=== PATIENT | male | born 1960 | race Caucasian/White ===

== ENCOUNTER 2016-10-07 16:48 | Inpatient (IN) | payer MEDICARE, MEDICAID ==
[~2016-10-07] VITALS: Ht 182.9 cm; Wt 122.7 kg
[~2016-10-07 16:48] MED LIST: AMLO10TA3 PO; ASPI81TA3 PO; ATOR10TA66 PO; CLOP75TA28 PO; DICL50TA5 PO; FUR20 PO; FURO40TA4 PO; GABA-502 PO; GLIM4TAB2 PO; GLIP10TA10 PO; IPRA0.2S51 IH; IRBE300T18 PO; LISI-567 PO; METO-272 PO; POTA10TA7 PO; TAMS0.4C98 PO; Vancomycin Inj 1,500 MG in 0.9% Sodium Chloride 500 ML IV SCH
[2016-10-07 16:51] VITALS: BP 169/91; PULSE 76; RESP 20; O2SAT 99
--- NOTE | 2016-10-07 18:11 | ED.REPORT ---
HPI-Extremity Problem Lower Date of Service Oct 07, 2016 ED Provider: Christian Enamorado DO This is a 55 year old male with a history of DM, peripheral arterial occlusive disease, morbid obesity, dementia, HTN, degenerative joint disease s/p left above-knee amputation and most recently right above-knee amputation presenting to the emergency department due to pressure ulcer at left buttock that appeared weeks ago. Reports foul smelling discharge, erythema near site, fevers, and chills. Denies nausea or vomiting. Pt seen at [facility] [address] Cervantes. R LE amputation performed by Dr. Andrea at [facility]. Nursing Notes Stated Complaint: WOUND ON LEFT HIP Chief Complaint: General Complaint Nursing Notes Reviewed: Yes Allergies: Coded Allergies: Sulfa (Sulfonamide Antibiotics) (Verified Allergy, Severe, hives, 10/07/16) meperidine (Verified Allergy, Severe, hives, 10/07/16) morphine (Verified Allergy, Severe, stopped breathing, 10/07/16) Scheduled Dicyclomine (Dicyclomine) 20 Mg Tablet 40 MG PO QID Insulin Glargine (Lantus U100 Insulin Vial) 100 Unit/Ml Vial 70 UNITS SUBQ HS Insulin Human Lispro (HumaLOG U100 Insulin Vial) 100 Unit/Ml Unit UNITS SUBQ ACHS sliding scale insulin Lisinopril (Lisinopril) 5 Mg Tablet 5 MG PO BID Methadone (Methadone) 5 Mg Tablet 5 MG PO QID Metoprolol Tartrate (Metoprolol Tartrate) 50 Mg Tablet 50 MG PO TID Sucralfate (Sucralfate) 1 Gm Tablet 1 GM PO QID oxyCODONE (oxyCODONE) 10 Mg Tablet 10 MG PO QID General Time Seen by MD: 18:11 Chief Complaint Hip injury left Hx Obtained From: Patient Arrived By: Walk-in Onset Occurred: Onset unknown Symptom Duration: Since onset Severity: Current: Mild Pertinent Negative: Pt denies other symptoms Recent Healthcare: No recent hospitalization, Recent doctor visit Similar Sx Previous: No Past Medical History Past Medical History 1. Diabetes mellitus. 2. Peripheral arterial occlusive disease. 3. Morbid obesity. 4. Dementia. 5. Posttraumatic stress disorder. 6. Chronic pain syndrome. 7. Migraine. 8. Hypertension. 9. Transient ischemic attacks. 10. Chronic obstructive pulmonary disease. 11. Degenerative joint disease. Past Surgical History Bilateral above-knee amputations Ambulatory Status Independent Review of Systems Constitutional: Reports: Chills, Fever Musculoskeletal: Reports: Extremity pain, Denies: Neck pain Skin: Reports Rash, Reports Swelling Neurologic: Denies: Change LOC, Numbness Complete sys rev & neg: except as marked. Physical Exam Initial Vital Signs Vital Signs (First) Date Time Temp Pulse Resp B/P Pulse Ox O2 Delivery O2 Flow Rate FiO2 10/07/16 16:51 36.9 76 20 169/91 99 Room Air Initial VS: Reviewed ENT: Mucous membranes moist, Conjunctiva normal, No scleral icterus Neck: Supple, Non-tender, Full range of motion Respiratory: Breath sounds normal, Clear to auscultation, No respiratory distress Cardiovascular: Regular rate & rhythm, Heart sounds normal, Intact distal pulses Abdomen / GI: Soft, Non-tender, No guarding, No rebound, No distention Upper Extremities: Vascular intact, Neuro intact, No swelling, No tenderness Skin: Warm, Dry, No cyanosis Neurologic: Alert, Oriented, Nonfocal Psychiatric: Mood/affect normal, Behavior normal, Normal thought content Lower Extremity / Pelvis / MS: Vascular intact Left buttock wound measuring 11.5 x 8.3 x 0.8 cm with black eschar with clear yellow to serous drainage with the appearance of necrosis strongly suggests an infection. Ankle / Foot: Atraumatic, Inspection NL, Full range of motion, No swelling, No erythema, Non-tender, No deformity, Neurologic intact, Vascular intact, No edema General/Constitutional: Awake, Alert Appearance / Presentation: Positive: Obese Head/Eyes not evaluated, pt wearing sunglasses Interpretation & Diagnostics L HIP X-RAY IMPRESSION: 1. Suspect left femoral neck fracture. 2. Subcutaneous gas in the left buttock. Dictated by: Juvencio Lopez M.D. on 10/07/2016 at 20:54 Approved by: Juvencio Lopez M.D. on 10/07/2016 at 20:56 Lab Results Interpretation Result Diagram: 10/08/16 0643 10/08/16 0643 Test 10/07/16 19:13 Hemoglobin A1c 7.7% (4.8-5.6) Lactic Acid Level 1.1mmol/L (0.4-2.0) Re-Eval/Medical Decision Med Decision/Clinical Course Infected buttock ulcer with possible femoral neck fracture versus osteomyelitis. This gentleman needs hospitalization, surgical debridement and possible orthopedic consultation. I have initiated antibiotics with IV Zosyn. Dr. Stephen the general surgeon on-call as been informed. She is currently in the operating room. Our hospitalist will admit Mr. Sandoval to the hospital for further treatment evaluation and specialist consultation. Consultation #1: Referral / Consult Name: Felicita Stephen MD Consulted With: Surgeon Call Returned at: 19:42 Employment Agency Manager: Agrees with eval, Agrees with plan Consultation #2: Referral / Consult Name: Nilson Olmedo MD Consulted With: Hospitalist Call Returned at: 19:58 Employment Agency Manager: Accepts admit Counseled Regarding: Diagnosis, Lab results, Need for follow-up, Need for admission Discharge & Departure Impression: Primary Impression: Skin ulcer of hip with necrosis of muscle Disposition: ADMITTED TO HOSPITAL Discharge Condition All VS Reviewed: Yes Condition: Stable Referrals: Steven Cosme MD (PCP) Scribe Attestation Portions of this note were transcribed by Carmen Morales. I, Dr. Enamorado personally performed the history, physical exam and medical decision-making; I reviewed and confirmed the accuracy of the information in the transcribed note. Signed by: Carmen Morales. 10/07/2016, 03:00. Christian Enamorado DO Oct 07, 2016 18:11 CARMEN MORALES Oct 07, 2016 18:25 Potassium Level 3.8mEq/L (3.5-5.2) Chloride Level 95mEq/L (97-108) Carbon Dioxide Level 29mmol/L (18-29) Blood Urea Nitrogen 15mg/dL (6-24) Creatinine 0.92mg/dL (0.76-1.27) Estimat Glomerular Filtration Rate 91mL/min (>59) Glucose Level 105mg/dL (60-99) Lactic Acid Level 1.1mmol/L (0.4-2.0) Calcium Level 8.0mg/dL (8.5-10.1) Total Bilirubin < 0.2mg/dL (0.0-1.2) Aspartate Amino Transf (AST/SGOT) 9U/L (0-50) Alanine Aminotransferase (ALT/SGPT) 9U/L (0-44) Alkaline Phosphatase 124U/L (25-150) Total Protein 7.1g/dL (6.4-8.4) Albumin 2.1g/dL (3.4-5.0) Procalcitonin 0.17ng/mL (0.00-0.08) Re-Eval/Medical Decision Consultation #1: Referral / Consult Name: Felicita Stephen MD Consulted With: Surgeon Call Returned at: 19:42 Employment Agency Manager: Agrees with eval, Agrees with plan Consultation #2: Referral / Consult Name: Nilson Olmedo MD Consulted With: Hospitalist Call Returned at: 19:58 Employment Agency Manager: Accepts admit Counseled Regarding: Diagnosis, Lab results, Need for follow-up, Need for admission Discharge & Departure Impression: Primary Impression: Skin ulcer of hip with necrosis of muscle Disposition: ADMITTED TO HOSPITAL Discharge Condition All VS Reviewed: Yes Condition: Stable Referrals: Steven Cosme MD (PCP) Scribe Attestation Portions of this note were transcribed by Carmen Morales. I, Dr. Enamorado personally performed the history, physical exam and medical decision-making; I reviewed and confirmed the accuracy of the information in the transcribed note. Signed by: Carmen Morales. 10/07/2016, 03:00. Christian Enamorado DO Oct 07, 2016 18:11 CARMEN MORALES Oct 07, 2016 18:25
[2016-10-07] MEDS ORDERED: Ondansetron 2 mg/mL 2 mL Inj IVPUSH PRN ×2 (18:25→21:10)
[2016-10-07 19:28] LABS: BASOPHILS % (AUTO) 0.1 % (0-3); EOSINOPHILS % (AUTO) 3.2 % (0-5)
[2016-10-07] MEDS: HYDROmorphone 0.5 mg/0.5 mL iSecure Syringe IVPUSH PRN ×3 (19:31→21:47)
[2016-10-07 19:34] LABS: MONOCYTES % (AUTO) 9.6 % (4-12); Mean Corpuscular Hemoglobin 24.7 pg (27.0-35.0); Mean Corpuscular Volume 82.3 fL (81-100); NEUTROPHILS % (AUTO) 70.8 % (40-74); Platelet Count 359 bil/L (150-400)
[2016-10-07] MEDS ORDERED: Polyethylene Glycol (PEG) 17 Gm Powder PO PRN ×2 (20:10→21:10)
[2016-10-07] MEDS ORDERED: OXYC10TA8 PO (20:14)
[2016-10-07] MEDS ORDERED: DICY20TA10 PO (20:14)
[2016-10-07] MEDS ORDERED: SUCR1TAB PO (20:14)
[2016-10-07] MEDS ORDERED: METH5TAB3 PO (20:14)
[2016-10-07] MEDS ORDERED: INSU100V7 SUBQ (20:15)
[2016-10-07] MEDS ORDERED: METO50TA3 PO (20:15)
[2016-10-07] MEDS ORDERED: INSLIS SUBQ (20:15)
[2016-10-07] MEDS ORDERED: LISI-571 PO (20:15)
--- NOTE | 2016-10-07 20:57 | DRSVH ---
PROCEDURE: X-RAY LEFT HIP COMPLETE, MINIMUM TWO VIEWS ([id number]) INDICATIONS: left hip/buttock wound TECHNIQUE: 2 views of the hip were acquired. COMPARISON: None. FINDINGS: Bones: Bones are osteopenic. Suspect fracture in the left femoral neck. There is severe osteopenia.. No suspicious bony lesions. The visualized pelvic ring appears intact. Soft tissues: No suspicious soft tissue calcifications or masses. Subcutaneous gas in the left butt ock. IMPRESSION: 1. Suspect left femoral neck fracture. 2. Subcutaneous gas in the left buttock. Dictated by: Juvencio Lopez M.D. on 10/07/2016 at 20:54 Approved by: Juvencio Lopez M.D. on 10/07/2016 at 20:56
[2016-10-07] MEDS ORDERED: Alum-Mag Hydrox-Simeth 30 mL Suspension PO PRN (21:10)
[2016-10-07] MEDS ORDERED: HYDROmorphone 0.5 mg/0.5 mL iSecure Syringe IVPUSH PRN (21:10)
[2016-10-07] MEDS ORDERED: Vancomycin Dose per Pharmacist XX SCH (21:10)
[2016-10-07] MEDS ORDERED: Glucose 40% Oral Gel 15 Gm Tube PO PRN ×2 (21:10→21:35)
[2016-10-07] MEDS: Vancomycin Dose per Pharmacist XX SCH (21:30)
[2016-10-07 21:48] VITALS: BP 135/68; RESP 16; O2SAT 95
[2016-10-07] MEDS ORDERED: Vancomycin Inj 2,250 MG in 0.9% Sodium Chloride 500 ML IV ONE (22:00)
[2016-10-07] MEDS: Insulin LISPRO 300 Unit/3 mL Inj SUBQ SCH (22:00)
[2016-10-07] MEDS ORDERED: Insulin LISPRO 300 Unit/3 mL Inj SUBQ SCH (22:00)
[2016-10-07 22:11] VITALS: BP 136/71; PULSE 85; RESP 20; O2SAT 93
--- NOTE | 2016-10-07 22:42 | PCM.CONPHA ---
Subjective Date of Service: Oct 07, 2016 Reason for Pharmacy Consult: Vancomycin Dosing Objective Vital Signs Date Time Temp Pulse Resp B/P Pulse Ox O2 Delivery O2 Flow Rate FiO2 10/07/16 22:11 36.7 20 136/71 93 Room Air 10/07/16 21:48 37.1 16 135/68 95 Room Air 10/07/16 16:51 36.9 76 20 169/91 99 Room Air Weight (Kilograms): 122.740 Height (Feet): 6 Height (Inches): 0.00 Test 10/07/16 19:13 White Blood Count 16.4th/mm3 (3.8-10.1) Red Blood Count 3.89mil/mm3 (4.40-5.80) Hemoglobin 9.6g/dL (13.8-17.2) Hematocrit 32.0% (41.0-50.0) Mean Corpuscular Volume 82.3fL (81-100) Mean Corpuscular Hemoglobin 24.7pg (27.0-35.0) Mean Corpuscular Hemoglobin Concent 30.0% (32.0-37.0) Red Cell Distribution Width 14.6% (12.3-15.4) Platelet Count 359bil/L (150-400) Neutrophils (%) (Auto) 70.8% (40-74) Lymphocytes (%) (Auto) 15.7% (14-46) Monocytes (%) (Auto) 9.6% (4-12) Eosinophils (%) (Auto) 3.2% (0-5) Basophils (%) (Auto) 0.1% (0-3) Sodium Level 135mEq/L (134-144) Potassium Level 3.8mEq/L (3.5-5.2) Chloride Level 95mEq/L (97-108) Carbon Dioxide Level 29mmol/L (18-29) Blood Urea Nitrogen 15mg/dL (6-24) Creatinine 0.92mg/dL (0.76-1.27) Estimat Glomerular Filtration Rate 91mL/min (>59) Glucose Level 105mg/dL (60-99) Lactic Acid Level 1.1mmol/L (0.4-2.0) Calcium Level 8.0mg/dL (8.5-10.1) Total Bilirubin < 0.2mg/dL (0.0-1.2) Aspartate Amino Transf (AST/SGOT) 9U/L (0-50) Alanine Aminotransferase (ALT/SGPT) 9U/L (0-44) Alkaline Phosphatase 124U/L (25-150) Total Protein 7.1g/dL (6.4-8.4) Albumin 2.1g/dL (3.4-5.0) Procalcitonin 0.17ng/mL (0.00-0.08) Assessment/Plan Assessment/Plan Vanco per Rx Indication: Hip Ulcer/Necrosis Trough Goal : 10 - 15 LD 2250mg then 1500mg q12h; 1st trough before 4th dose @ 0930 Estimated trough @ SS : 12 Rigo Alejandro PharmD Oct 07, 2016 22:41
--- NOTE | 2016-10-07 23:10 | PCM.HPMED ---
Subjective Date of Service Oct 07, 2016 Primary Provider: Admitting Physician: Felicita Stephen MD Primary Care Physician: Steven Cosme MD Attending Physician: Felicita Stephen MD Admit Status: From the Emergency Department Chief Complaint: Left hip wound History of Present Illness: 55-year-old obese patient with history of smoking, PAD, insulin-dependent diabetes mellitus, diabetic retinopathy presented to the ER due to his left hip ulcer. Patient is present with his and caregiver. They report that patient was discharged from [facility] following right above-the- knee amputation in July, when they first noticed left hip ulcer. The patient's reports that she applied gentamicin to the ulcer but noted that it did not help and the ulcer continued to grow.Family notes that the ulcer has been getting deeper and more painful for the patient. Family reports that there is a significant amount of purulent drainage with significant odor and some blood. Patient reports that he has been experiencing fever, chills, nausea, vomiting, diarrhea. Patient denies any new myalgias, but reports chronic allover pain. Family reports that the patient was seen at the wound care center and then was evaluated by a surgeon who had recommended surgery last week. Patient states that he was unable to have the surgery last week, as he wanted to keep his eye appointment, which resulted in a diagnosis of diabetic retinopathy. Patient and his family reports that they presented to the ER today because of increasing purulent discharge and a desire for surgical evaluation as had been previously recommended. Patient states that while he has a diabetic he refuses to eat a diabetic diet, and states that he will leave AMA if a diabetic diet as ordered for him. In the ER patient noted temperature 36.9, pulse of 76, respiratory rate of 20, blood pressure 169/91, pulse ox 99 on room air. Review of Systems: A comprehensive review of systems was conducted with the patient and found to be negative except as above in the History of Present Illness. Allergies Coded Allergies: Sulfa (Sulfonamide Antibiotics) (Verified Allergy, Severe, hives, 10/07/16) meperidine (Verified Allergy, Severe, hives, 10/07/16) morphine (Verified Allergy, Severe, stopped breathing, 10/07/16) Home Medications Amlodipine Aspirin 81 mg Atorvastatin Plavix Diclofenac Furosemide Gabapentin Glimepiride Glipizide Ipratropium Irbesartan Lisinopril Metoprolol Potassium chloride Tamsulosin Methadone Oxycodone Insulin PMH Diabetes mellitus type II insulin-dependent Peripheral artery occlusive disease Morbid obesity Dementia Posttraumatic stress disorder Chronic pain syndrome Migraine Hypertension TIA COPD Degenerative joint disease Surgical History Bilateral [id number] amputations Social History Hx Alcohol Use: Yes ("quit") Hx Substance Use: No Hx Tobacco Use: Yes Smoking Status: Current Every Day Smoker Living Arrangement: with Family Exam Vital Signs Vital Sign - Last Date Time Temp Pulse Resp B/P Pulse Ox O2 Delivery O2 Flow Rate FiO2 10/07/16 22:11 36.7 20 136/71 93 Room Air 10/07/16 16:51 76 Exam General: Obese, appears older than stated age. Chronically ill appearing. HEENT: Edentulous .Normocephalic, atraumatic. External ears without defect. Pupils equal, round, and reactive to light and accommodation. Moist conjunctivae. Oropharynx with moist mucosa. Neck: Supple with full range of motion.No lymphadenopathy Cardiovascular: Regular rate and rhythm with no murmurs, rubs, or gallops appreciated Pulmonary: Clear to auscultation bilaterally with no crackles, wheezes, or rhonchi. Normal respiratory effort with no use of accessory muscles. Abdomen: Large pannus. Bowel tones present. Soft, nontender, nondistended. Extremities: Left hip with significant eschar and malodorous purulent drainage. Unable to visualize sacral wound due to patient's habitus. Bilateral above-the -knee amputation. Right amputation stump with 1-2 cm circular wound. Skin: Normal temperature, turgor, and texture; no rash, ulcers, or subcutaneous nodules appreciated. Psychiatric: Normal mood and affect. Alert and oriented to person, place, and time. Lab and Diagnostics Result Diagram: 10/07/16191210/07/161912 X-Rays, CTs and MRIs PROCEDURE: X-RAY LEFT HIP COMPLETE, MINIMUM TWO VIEWS ([id number]) INDICATIONS: left hip/buttock wound TECHNIQUE: 2 views of the hip were acquired. COMPARISON: None. FINDINGS: Bones: Bones are osteopenic. Suspect fracture in the left femoral neck. There is severe osteopenia.. No suspicious bony lesions. The visualized pelvic ring appears intact. Soft tissues: No suspicious soft tissue calcifications or masses. Subcutaneous gas in the left buttock. IMPRESSION: 1. Suspect left femoral neck fracture. 2. Subcutaneous gas in the left buttock. Dictated by: Juvencio Lopez M.D. on 10/07/2016 at 20:54 Approved by: Juvencio Lopez M.D. on 10/07/2016 at 20:56 Assessment & Plan 55-year-old obese patient with history of smoking, PAD, insulin-dependent diabetes mellitus, diabetic retinopathy presented due to his left hip ulcer. Infected unstageable left hip pressure ulcer, present on admission, ongoing -In ER, xray of hip demonstrated left femoral neck fracture and subcutaneous gas in left buttock -Pt received dose of Zosyn in ER. -Leukocytosis 16.4,neutrophils 70.8 -Lactic acid 1.1, no need to trend -Procalcitonin 0.17 -Blood cultures pending -Treating pt with Vancomycin and Zosyn -Dilaudid available for pain -Per ER physician, surgery has been consulted and will likely perform surgery in AM -Pt NPO after midnight for AM surgery Insulin-dependent diabetes mellitus type 2 with complication of diabetic retinopathy, present on admission, ongoing -Holding home medications -Low dose correctional insulin protocol initiated -Would recommend diabetic diet, however pt states he would leave AMA if given diabetic diet -General diet ordered for patient -A1C ordered Morbid obesity -BMI of 36.7 Tobacco use disorder, present on admission, ongoing -Nicotine patch ordered for patient -Encouraged cessation, pt not interested. Chronic issues Peripheral artery disease Chronic pain COPD PCP: Dr Cosme CODE STATUS: Full code Pain Evaluation: Adequate Pain Control VTE Prophylaxis: Sub-Q Heparin (Unfractionated) Resuscitation Status: CPR: Attempt Resuscitation Attending Statement The patient was seen and examined together with Dr. Brown on 10/07 and I agree with the history, exam and plan as outlined in the note above. copies to: Steven Cosme MD, Tara L DO Oct 07, 2016 22:38 Nilson Olmedo MD Oct 08, 2016 00:36
[2016-10-08] VITALS (11 sets, daily range): BP systolic 123–163; BP diastolic 64–87; PULSE 74–92; RESP 12–18; O2SAT 94–100
[2016-10-08] MEDS: 0.9% Sodium Chloride 1,000 ML IV SCH ×3 (00:21→17:06)
[2016-10-08] MEDS ORDERED: Piperacillin-Tazo 3.375 Gm Inj 3.375 GM in Dextrose 5% Minibag Plus 50 ML IV SCH (00:30)
[2016-10-08] MEDS: HYDROmorphone 0.5 mg/0.5 mL iSecure Syringe IVPUSH PRN ×3 (01:29→16:10)
[2016-10-08] MEDS: Heparin 5,000 Unit/mL Inj SUBQ SCH ×3 (01:34→16:18)
[2016-10-08] MEDS: Piperacillin-Tazo 3.375 Gm Inj 3.375 GM in Dextrose 5% Minibag Plus 50 ML IV SCH ×4 (03:32→16:09)
[2016-10-08 06:54] LABS: BASOPHILS % (AUTO) 0.1 % (0-3); EOSINOPHILS % (AUTO) 3.5 % (0-5); MONOCYTES % (AUTO) 9.3 % (4-12); Mean Corpuscular Hemoglobin 24.6 pg (27.0-35.0); NEUTROPHILS % (AUTO) 65.1 % (40-74); Platelet Count 331 bil/L (150-400)
--- NOTE | 2016-10-08 07:53 | NUR ---
admit pt arrived to [facility] at 2210. He was moved to a p500 bed via sliding board. he is alert and oriented x3, but forgetful. he moves all extremities but requires a sling and lift for some bed movements and transfers as he has bilateral AKA's. pt had a soiled dressing on his Left buttock. when pt arrived he refused to roll to his other side to allow nurse to change his dressing or to check his buttocks for other skin breakdown. he also refused to eat a diabetic diet despite teaching. MD note noted this and said a general diet had been ordered. This AM pt did allow nurse and [employer]'s to turn him and look at his buttocks. a second ulcer was found on his sacrum at that time. this was passed on to Dr. Fontanez when he rounded this AM. clean ABD pads were placed on the wounds. pt incontinent of urine and feces. frequent linen changes and skin checks needed. care continues.
--- NOTE | 2016-10-08 07:53 | PCM.PNSURG ---
Subjective Visit Information: Reason for Visit Infected Pressure Ulcer Surgery/Surgery Date Post-Op Day # Date of Admission: Oct 07, 2016 at 19:27 Hospital Day # Subjective: pt [facility] and 10/01, known to Dr. Cervantes, has large black ulcer on L buttock and a shallow sacral decub ulcer. Objective Objective Lying in bed L buttock -- tennis ball size black necrotic ulcer Shallow sacral decub ulcer, stage 3 Vital Sign- Last 8 Hours Date Time Temp Pulse Resp B/P Pulse Ox O2 Delivery O2 Flow Rate FiO2 10/08/16 06:09 37.2 80 18 158/83 94 Room Air 10/08/16 02:16 36.9 74 18 123/68 94 Room Air Intake and Output- Last 8 Hour 10/08/16 Cumulative From/Thru 07:00 10/07/16 16:51 - 10/08/16 06:44 Intake Total 600 ml 600 ml Balance 600 ml 600 ml Intake Oral 600 ml 600 ml # Voids 2 2 Result Diagram: 10/08/16 0643 10/07/16 1913 Assessment & Plan Impression L buttock and sacral decub ulcer DM s/p bilat leg amputation Problems: Plan To OR for debridement Consider ortho consult for the hip VTE Prophylaxis: Sub-Q Heparin (Unfractionated) Resuscitation Status: CPR: Attempt Resuscitation King Fontanez MD Oct 08, 2016 07:53
[2016-10-08] MEDS: Insulin LISPRO 300 Unit/3 mL Inj SUBQ SCH ×4 (08:11→21:28)
[2016-10-08] MEDS: Vancomycin Dose per Pharmacist XX SCH (08:15)
[2016-10-08] MEDS ORDERED: Vancomycin Inj 1,500 MG in 0.9% Sodium Chloride 500 ML IV SCH (10:00)
--- NOTE | 2016-10-08 10:26 | NUR ---
IV meds Zosyn off schedule at start of shift; also discovered IV not patent when Vanco due. Unable to restart, phoned IV therapy for assistance. Waiting for restart from IV therapy. Also phoned pharmacy about re-timing Zosyn.
--- NOTE | 2016-10-08 11:17 | PCM.PHAPRO ---
Progress Left hip wound Pharmacy Kinetic Dosing Vancomycin Indication: Necrotizing pressure ulcer Vanc goal trough: 15-20 mcg/mL (given co-morbidities and hospitalization in 2015) Pt wt: 122.7 kg Other ABX: Zosyn SCr: 0.93 WBC: 14.6 Cultures: Blood: pending *NOTE: pt undergoing debridement of affected area 10/09* Assessment/Plan: - Loading dose of vancomycin 2,250 mg given in ED. -Will increase scheduled vancomycin to 2000 mg Q12H to obtain ~ 16 mg/kg based on severity of infection. -Will schedule trough level for on 10/09/16 @2230. Pharmacy appreciates consult and will continue to monitor. Thanks, Nakul Lombardo, PharmD Nakul Lombardo F Oct 08, 2016 11:17
--- NOTE | 2016-10-08 11:39 | NUR ---
Transfer To OR via bed at 11:25. No IV access, pre-op RN and IV therapy aware. Angela sent with pt. Signed consent in chart. Report given to pre-op RN.
--- NOTE | 2016-10-08 11:45 | PCM.HPANE ---
Patient Data Surgeon Admitting Provider:Felicita Stephen MD Attending Provider:Felicita Stephen MD Primary Care Physician:Steven Cosme MD Other Provider: Reason for Visit Infected Pressure Ulcer Ht/WT & BMI Height (Feet): 6 Height (Inches): 0.00 Weight (Kilograms): 122.740 Body Mass Index 36.65 Allergies Coded Allergies: Sulfa (Sulfonamide Antibiotics) (Verified Allergy, Severe, hives, 10/07/16) meperidine (Verified Allergy, Severe, hives, 10/07/16) morphine (Verified Allergy, Severe, stopped breathing, 10/07/16) Past Anesthesia History Anesthesia History: Denies:: Anesthesia Reactions Diabetes History Hx Diabetes?: Yes (IDDM) Current Bedside Blood Glucose: 195 MRSA MRSA: No Medications Reported Medications Insulin Human Lispro (HumaLOG U100 Insulin Vial)100 Unit/Ml Unit Units SUBQ ACHS sliding scale insulin 10/07/16 Insulin Glargine (Lantus U100 Insulin Vial)100 Unit/Ml Vial70 Units SUBQ HS 10/07/16 Metoprolol Tartrate 50 Mg [id number] Mg PO TID 10/07/16 Lisinopril 5 Mg Tablet5 Mg PO BID 10/07/16 Sucralfate 1 Gm Tablet1 Gm PO QID 10/07/16 Dicyclomine 20 Mg [id number] Mg PO QID 10/07/16 oxyCODONE 10 Mg [id number] Mg PO QID 10/07/16 Methadone 5 Mg Tablet5 Mg PO QID 10/07/16 Last Time Dose Received Hospital meds reviewed History History of ENT Problems?: No Hx of Heart Problems?: Yes Cardiovascular History: Positive for:: Hypertension Other History/Comments Pt. reports hx ID; unclear; no recent CP Hx of Respiratory Problem?: Yes Respiratory History: Positive for:: COPD Dyspnea Other History/Comment breathing is at baseline Hx Neurologic Problems?: Yes Neurological History: Positive for:: CVA (tia's) Dementia Headaches (migraines) Other Neurological Pertinent: PAD Other History/Comments CVA - 2007; TIA"s Hx of GI Problems?: No Hx of Problems?: No Male Hx: Positive for:: Prostate Problems Hx Musculoskeletal Problems?: Yes Musculoskeletal History: Positive for:: Back Injury (chronic pain sme, DJD) Hx of Psycho/Social Problems?: Yes Psycho Social History: Positive for:: Anxiety (PTSD) Hx Surgeries?: Yes (bilateral AKA's) Hx Any Other Health Problems?: Yes Other History: Positive for:: Hospitalization Denies:: Cancer Thyroid Disease History Blood Transfusions: Positive for:: Accept Blood Products? Hx Diabetes: Yes (IDDM)Bedside Blood Glucose: 195 Hx Alcohol Use: Yes ("quit")Hx Substance Use: No Smoking Status: Current Every Day Smoker Have You Smoked inLast 12 mo: Yes Stop/Bang Treated for Sleep Apnea?: No Do You Have a CPAP Machine?: No S-Snoring: Do You Snore Loudly: Yes T-Tired: feel tired, fatigued: Yes O-Obsered: Observed not breath: No P-Blood Pressure: treated: Yes B- Body Mass Index > 35 kg/m2: No A- Age over 50: Yes N- Neck Large Circumference: Yes G- Gender Male: Yes CARLOS Total Score: 5 Risk Assessment Category Category 1A: Patient has history of documented sleep apnea, and HAS NOT received any narcotic, sedative or anesthesia administration during this stay. Category 1B: Patient has history of documented sleep apnea, and HAS received any narcotic , sedative or anesthesia administration during this stay Category 2: Patient has SUSPECTED Obstructive Sleep Apnea, and HAS received any narcotic , sedative or anesthesia administration during this stay. Category 3: Patient has SUSPECTED Obstructive Sleep Apnea and HAS NOT received narcotic, sedative or anesthesia administration during this stay. Category 4: Outpatient in Procedural Areas with known sleep apnea or who screen positive for High Risk via the STOP/BANG questionnaire. Exam Exam Vital Signs Vital Signs Date Time Temp Pulse Resp B/P Pulse Ox O2 Delivery O2 Flow Rate FiO2 10/08/16 06:09 37.2 80 18 158/83 94 Room Air General Appearance: Alert, Oriented X3 HEENT/AIRWAY: MP 2, MP 3, Neck Movement (FROM), Other (No teeth) Lungs: Clear to Auscultation, Clear to Percussion Heart: Exam Unremarkable, Regular Rate/Rhythm Meds/Labs/Diagnostics Admission Meds Current Medications Heparin Sodium (Porcine) 5000 unit 5,000 unit Q8 SUBQ Last administered on 10/08 01:34; Start 10/08/16 at 00:30 Sodium Chloride (Normal Saline) 1,000 ml @ 100 mls/hr Q10H IV Last administered on 10/08/16 00:21; Start 10/07/16 at 21:06 Nicotine 1 patch 1 patch HS TOPICAL Last administered on 10/07/16 23:10; Start 10/07/16 at 23:00 Vancomycin HCl/ Sodium Chloride (Vancocin Inj/ Normal Saline) 500 ml @ 200 mls/ hr ONCE ONCE IV Last administered on 10/08/16 00:20; Start 10/07/16 at 22:00 ; Stop 10/08/16 at 00:29; Status DC Insulin Human Lispro Nutritional Dose to be given pr... [facility] SUBQ Last administered on 10/08/16 08:11; Start 10/07/16 at 22:00 Piperacillin Sod/ Tazobactam Sod/ Dextrose/Water (Zosyn 3.375 Gm Inj/D5W Minibag Plus) 50 ml @ 12.5 mls/hr Q8 IV Last administered on 10/08/16 03:32; Start 10/08/16 at 00:30 Bedside Blood Glucose: 195 Labs Test 10/07/16 19:13 10/08/16 06:43 Hemoglobin A1c 7.7% (4.8-5.6) Lactic Acid Level 1.1mmol/L (0.4-2.0) White Blood Count 14.0th/mm3 (3.8-10.1) Red Blood Count 3.41mil/mm3 (4.40-5.80) Hemoglobin 8.4g/dL (13.8-17.2) Hematocrit 28.3% (41.0-50.0) Mean Corpuscular Volume 83.0fL (81-100) Mean Corpuscular Hemoglobin 24.6pg (27.0-35.0) Mean Corpuscular Hemoglobin Concent 29.7% (32.0-37.0) Red Cell Distribution Width 14.4% (12.3-15.4) Platelet Count 331bil/L (150-400) Neutrophils (%) (Auto) 65.1% (40-74) Lymphocytes (%) (Auto) 21.5% (14-46) Monocytes (%) (Auto) 9.3% (4-12) Eosinophils (%) (Auto) 3.5% (0-5) Basophils (%) (Auto) 0.1% (0-3) Sodium Level 137mEq/L (134-144) Potassium Level 4.2mEq/L (3.5-5.2) Chloride Level 99mEq/L (97-108) Carbon Dioxide Level 27mmol/L (18-29) Blood Urea Nitrogen 15mg/dL (6-24) Creatinine 0.93mg/dL (0.76-1.27) Estimat Glomerular Filtration Rate 90mL/min (>59) Glucose Level 146mg/dL (60-99) Calcium Level 7.4mg/dL (8.5-10.1) Total Bilirubin 0.2mg/dL (0.0-1.2) Aspartate Amino Transf (AST/SGOT) 10U/L (0-50) Alanine Aminotransferase (ALT/SGPT) 8U/L (0-44) Alkaline Phosphatase 129U/L (25-150) Total Protein 5.6g/dL (6.4-8.4) Albumin 1.8g/dL (3.4-5.0) Procalcitonin 0.17ng/mL (0.00-0.08) Plan Impression Patient chart reviewed, patient interviewed and anesthestic plan with risks, benefits, and alternatives discussed, and informed consent obtained. ASA Physical Status: ASA3 Plus Emergency Anesthetic Plan: GA Bene/Risks/Altern/Consents: Yes HP Complete Prior to Induction: Yes Adrian Viera MD Oct 08, 2016 11:45
[2016-10-08] MEDS ORDERED: fentaNYL-PF 50 mCg/mL 2 mL Inj ONE (11:56)
[2016-10-08] MEDS ORDERED: Propofol 10,000 mCg/mL 20 mL Inj ONE (11:56)
[2016-10-08] MEDS ORDERED: Succinylcholine Chloride 20 mg/mL 5 mL Inj ONE (11:56)
[2016-10-08] MEDS ORDERED: EPHEDrine/NS 5 mg/mL 5 mL Syringe ONE (11:56)
[2016-10-08] MEDS ORDERED: fentaNYL-PF 50 mCg/mL 2 mL Inj IVPUSH PRN (12:25)
[2016-10-08] MEDS ORDERED: Atropine 0.4 mg/mL Inj IVPUSH PRN (12:25)
[2016-10-08] MEDS ORDERED: MetoCLOpramide 5 mg/mL 2 mL Inj IVPUSH PRN (12:25)
[2016-10-08] MEDS ORDERED: Lactated Ringer's 1,000 ML IV SCH (12:25)
[2016-10-08] MEDS ORDERED: Phenylephrine 10,000 mCg/mL Inj IVPUSH PRN (12:25)
[2016-10-08] MEDS ORDERED: Lactated Ringer's 500 ML IV PRN (12:25)
[2016-10-08] MEDS ORDERED: EPHEDrine Sulfate 50 mg/mL Inj IVPUSH PRN (12:25)
[2016-10-08] MEDS ORDERED: Ondansetron 2 mg/mL 2 mL Inj IVPUSH PRN (12:25)
[2016-10-08] MEDS: Vancomycin Inj 2,000 MG in 0.9% Sodium Chloride 500 ML IV SCH ×3 (12:48→23:18)
[2016-10-08] MEDS ORDERED: Lactated Ringer's 1,000 ML IV ONE (12:55)
[2016-10-08] MEDS ORDERED: Bupivacaine-MPF 0.5% W/EPI 30 mL Inj INFILTRATE ONE (12:57)
--- NOTE | 2016-10-08 14:33 | PCM.ANEP1 ---
Post Anesthesia Phase 1 PACU Phase 1 Assessment Date of Service: Oct 07, 2016 Anesthetic Administered: GA Level of Alertness: Awake, talking NOGUEIRA's with Equal Strength: Yes Pain: No Pain Scale Score: 10 Nausea or Vomiting: No Oxygen Delivery: Simple Mask Lungs: Clear to Auscultation, Clear to Percussion Summary See anesth record for PACU VS. PACU VSS Adrian Viera MD Oct 08, 2016 14:33
--- NOTE | 2016-10-08 14:34 | PCM.ANEP2 ---
Post Anesthesia Evaluation ASA/CMS Post Anesthesia VS in Patient's Normal Range?: Yes Resp Stable; Airway Patent?: Yes CV Function & Hydration Stable: Yes Mental Status Recovered?: Yes Pain control Satisfactory?: Yes N/V Control Satisfactory?: Yes Adrian Viera MD Oct 08, 2016 14:34
[2016-10-08] MEDS: HYDROmorphone 1 mg/mL Inj IVPUSH PRN ×2 (14:47→15:03)
--- NOTE | 2016-10-08 15:10 | OP ---
[address] [address] OPERATIVE REPORT PATIENT: TONIO SHABAZZ : 1960 MR#: [id number] ADMIT: 10/07/2016 JOB ID: [id number] DATE OF SURGERY: 10/08/2016 SURGEON: King Fontanez MD RESOURCE DEVELOPMENT DIRECTOR: None. ANESTHESIA: General. PREOPERATIVE DIAGNOSIS(ES): Decubitus ulcer x2. POSTOPERATIVE DIAGNOSIS(ES): Decubitus ulcer x2. PRINCIPAL PROCEDURE: Excisional debridement of left hip decubitus ulcer and also a sacral decubitus ulcer. INDICATION FOR PROCEDURE: The patient is a 55-year-old male with peripheral vascular disease and prior leg amputations x2 who now has a decubitus ulcer x2, one at the left hip, and one at the sacral region. PRINCIPAL FINDING: Successful excisional debridement of the larger left hip decubitus ulcer by the end of procedure. The dimensions measured 11 x 11 x 5 cm. The smaller perineal/sacral decubitus ulcer was smaller and measured 3 x 3 x 4 cm in dimension. PROCEDURE COURSE: The patient was brought to the operating table and was provided with general anesthesia. The patient was placed in a right lateral decubitus position exposing his left hip, and also his peroneal/sacral region. A time-out was performed. The patient had already been receiving IV antibiotics. A local anesthetic was injected into the surrounding tissue and we started with excisional debridement of the large left hip decubitus ulcer sharply using a scalpel. The entire necrotic skin and subcu and underlying muscle was all sharply debrided all the way down to the femoral neck. We were directly onto the femoral bone itself. All obvious necrotic and non bleeding tissue were excised. Hemostasis was controlled using cautery. Using a finger, we bluntly probed in all directions to make sure we unroof any abscess cavity. Copious irrigation was also performed. By the end of the excisional debridement, the cavity measured 11 x 11 x 5 cm. It was then packed with Kerlix soaked in half-strength Betadine. Next, we turned our attention to the peroneal/sacral decubitus. Again the skin and necrotic subcu and fat were all excised sharply using the scalpel. Hemostasis was controlled using cautery. By the end of the excisional debridement, the cavity measured 3 x 3 x 4 cm. Wound care, Morris Garduno, was present at the end of procedure to visualize the wounds. The second smaller cavity was also packed with Kerlix gauze soaked in half strength Betadine. By the end of the procedure, needle counts and sponge counts were correct. The patient was then extubated and taken to the recovery room in stable satisfactory condition.
--- NOTE | 2016-10-08 15:44 | NUR ---
Post op Returned to [facility] via bed at 15:35. Report received from Jamilah. Awake and oriented. Denies nausea, complains of hip/incisional pain /. Sats mid 90s on 2L nc, DESIGN ASSEMBLER for apnea risk and narcotics. Dressings intact with Betadine seepage. Vanco infusing. Clinitron bed ordered per professional sports scoutMorris.
--- NOTE | 2016-10-08 16:25 | PCM.CONORT ---
Subjective Surgeon Admitting Provider:Felicita Stephen MD Attending Provider:Felicita Stephen MD Primary Care Physician:Steven Cosme MD Other Provider: Reason for Consultation: Left femoral head fracture, decubitus/hip ulcer Allergy Allergies: Coded Allergies: Sulfa (Sulfonamide Antibiotics) (Verified Allergy, Severe, hives, 10/07/16) meperidine (Verified Allergy, Severe, hives, 10/07/16) morphine (Verified Allergy, Severe, stopped breathing, 10/07/16) Medications Dicyclomine (Dicyclomine) 20 Mg Tablet 40 MG PO QID (Reported) Insulin Glargine (Lantus U100 Insulin Vial) 100 Unit/Ml Vial 70 UNITS SUBQ HS ( Reported) Insulin Human Lispro (HumaLOG U100 Insulin Vial) 100 Unit/Ml Unit UNITS SUBQ ACHS (Reported) sliding scale insulin Lisinopril (Lisinopril) 5 Mg Tablet 5 MG PO BID (Reported) Methadone (Methadone) 5 Mg Tablet 5 MG PO QID (Reported) Metoprolol Tartrate (Metoprolol Tartrate) 50 Mg Tablet 50 MG PO TID (Reported) Sucralfate (Sucralfate) 1 Gm Tablet 1 GM PO QID (Reported) oxyCODONE (oxyCODONE) 10 Mg Tablet 10 MG PO QID (Reported) History History of ENT Problems?: No Hx of Heart Problems?: Yes Cardiovascular History: Positive for:: Hypertension Hx of Respiratory Problem?: Yes Respiratory History: Positive for:: COPD Dyspnea Hx Neurologic Problems?: Yes Neurological History: Positive for:: CVA (tia's) Dementia Headaches (migraines) Other Neurological Pertinent: PAD Hx of GI Problems?: No Hx of Problems?: No Male Hx: Positive for:: Prostate Problems Hx Musculoskeletal Problems?: Yes Musculoskeletal History: Positive for:: Back Injury (chronic pain sme, DJD) Other History/Comment Ryley Sandoval is a 55-year-old male patient who presents to the hospital with extensive history including but not limited to DM, neuropathy, h/o b/l AKA with decub and hip ulcers. Consult for orthopedic evaluation of their left hip has been requested. The patient states that their pain is a sharp in nature and mild /moderate in severity localized in the hip without radiation. This has been progressing over the past several weeks. Moreover, the pain is exacerbated by activities, especially with movement. Rest seems to improve the symptoms. Previous treatment has included debridement in OR today with general surgery. There still residual numbness, tingling, or weakness to the affected lower extremity. There is no known history of hip problems as a child/adolescent such as SCFE, Perthes, dysplasia, OI, or ligamentous laxity. The patient denies any fever, chills, nausea, vomiting, chest pain, shortness of breath, or calf tenderness. Hx of Psycho/Social Problems?: Yes Psycho Social History: Positive for:: Anxiety (PTSD) Hx Surgeries?: Yes (bilateral AKA's) Hx Any Other Health Problems?: Yes Other History: Positive for:: Hospitalization Denies:: Cancer Thyroid Disease History Blood Transfusions: Positive for:: Accept Blood Products? Hx Diabetes: Yes (IDDM)Bedside Blood Glucose: 148 Hx Alcohol Use: Yes ("quit")Hx Substance Use: No Smoking Status: Current Every Day Smoker Have You Smoked inLast 12 mo: Yes Objective Exam Vital Signs & I/O Vital Sign- Last 8 Hours Date Time Temp Pulse Resp B/P Pulse Ox O2 Delivery O2 Flow Rate FiO2 10/08/16 15:37 36.6 85 18 157/87 98 Room Air 10/08/16 15:30 37.0 85 18 151/71 99 Nasal Cannula 4 10/08/16 15:15 85 14 156/66 99 Nasal Cannula 4 10/08/16 15:00 37.0 88 17 150/70 96 Room Air 10/08/16 14:45 89 17 158/74 100 Simple Mask 7 10/08/16 14:40 90 12 158/73 100 Simple Mask 7 10/08/16 14:35 90 18 163/71 100 Simple Mask 7 10/08/16 14:33 Simple Mask 10/08/16 14:30 36.6 152/64 Intake and Output- Last 8 Hour 10/08/16 Cumulative From/Thru 07:00 10/07/16 16:51 - 10/08/16 06:44 Intake Total 600 ml 600 ml Balance 600 ml 600 ml Intake Oral 600 ml 600 ml # Voids 2 2 Lab & Micro Results Laboratory Tests Test 10/07/16 19:13 10/08/16 06:43 White Blood Count 16.4th/mm3 (3.8-10.1) 14.0th/mm3 (3.8-10.1) Red Blood Count 3.89mil/mm3 (4.40-5.80) 3.41mil/mm3 (4.40-5.80) Hemoglobin 9.6g/dL (13.8-17.2) 8.4g/dL (13.8-17.2) Hematocrit 32.0% (41.0-50.0) 28.3% (41.0-50.0) Mean Corpuscular Volume 82.3fL (81-100) 83.0fL (81-100) Mean Corpuscular Hemoglobin 24.7pg (27.0-35.0) 24.6pg (27.0-35.0) Mean Corpuscular Hemoglobin Concent 30.0% (32.0-37.0) 29.7% (32.0-37.0) Red Cell Distribution Width 14.6% (12.3-15.4) 14.4% (12.3-15.4) Platelet Count 359bil/L (150-400) 331bil/L (150-400) Neutrophils (%) (Auto) 70.8% (40-74) 65.1% (40-74) Lymphocytes (%) (Auto) 15.7% (14-46) 21.5% (14-46) Monocytes (%) (Auto) 9.6% (4-12) 9.3% (4-12) Eosinophils (%) (Auto) 3.2% (0-5) 3.5% (0-5) Basophils (%) (Auto) 0.1% (0-3) 0.1% (0-3) Sodium Level 135mEq/L (134-144) 137mEq/L (134-144) Potassium Level 3.8mEq/L (3.5-5.2) 4.2mEq/L (3.5-5.2) Chloride Level 95mEq/L (97-108) 99mEq/L (97-108) Carbon Dioxide Level 29mmol/L (18-29) 27mmol/L (18-29) Blood Urea Nitrogen 15mg/dL (6-24) 15mg/dL (6-24) Creatinine 0.92mg/dL (0.76-1.27) 0.93mg/dL (0.76-1.27) Estimat Glomerular Filtration Rate 91mL/min (>59) 90mL/min (>59) Glucose Level 105mg/dL (60-99) 146mg/dL (60-99) Hemoglobin A1c 7.7% (4.8-5.6) Lactic Acid Level 1.1mmol/L (0.4-2.0) Calcium Level 8.0mg/dL (8.5-10.1) 7.4mg/dL (8.5-10.1) Total Bilirubin < 0.2mg/dL (0.0-1.2) 0.2mg/dL (0.0-1.2) Aspartate Amino Transf (AST/SGOT) 9U/L (0-50) 10U/L (0-50) Alanine Aminotransferase (ALT/SGPT) 9U/L (0-44) 8U/L (0-44) Alkaline Phosphatase 124U/L (25-150) 129U/L (25-150) Total Protein 7.1g/dL (6.4-8.4) 5.6g/dL (6.4-8.4) Albumin 2.1g/dL (3.4-5.0) 1.8g/dL (3.4-5.0) Procalcitonin 0.17ng/mL (0.00-0.08) 0.17ng/mL (0.00-0.08) Microbiology 10/07/16 Blood Culture, Received Pending Result Diagram: 10/08/16 0643 10/08/16 0643 Review of Systems: Constitutional: Negative, except as otherwise mentioned in the history above. Ophthalmologic: Negative, except as otherwise mentioned in the history above. Cardiovascular: Negative, except as otherwise mentioned in the history above. Respiratory: Negative, except as otherwise mentioned in the history above. Gastrointestinal: Negative, except as otherwise mentioned in the history above. Genitourinary: Negative, except as otherwise mentioned in the history above. Musculoskeletal: Negative, except as otherwise mentioned in the history above. Neurological: Negative, except as otherwise mentioned in the history above. Psychiatric: Negative, except as otherwise mentioned in the history above. Hematologic/Lymphatic: Negative, except as otherwise mentioned in the history above. Allergic/Immunologic: Negative, except as otherwise mentioned in the history above. H&P Surgical Exam Exam General: Alert, Oriented X3 Musculoskeletal: CONST: WD,WN, NAD, A+OX3 OCULAR: EOMI, no conjunctivitis/icterus ENT: no deformities, scars or lesions CARDIAC: Pulse is regular. No cyanosis,clubbing,edema RESP: regular,unlabored MSK: decreased to light touch b/l stumps Left HIP - 11 x 11 x 5 cm lateral hip wound down to bone with clean edges. sacral decubitus ulcer was smaller and measured 3 x 3 x 4 cm scars. b/l AKA stump incision clean, healed Additional Information X-rays of the left hip demonstrate lucency surrounding the left femoral head and neck with likely fracture versus osteomyelitis H&P Preop Plan Impression Left femoral head/neck fracture versus osteomyelitis/osteopenia Problems: Risks & Benefits * We have reviewed the risks and benefits as well as the alternatives to surgery. All questions were answered to the patient's satisfaction and a counseling note to that effect. The patient has provided informed consent. * I have counseled the patient regarding the deleterious effects that smoking during the perioperative period can have upon wound healing, infection rates, and the overall rate of complications. Plan Continue nonweightbearing left extremity- he has been unambulatory and fracture does not need fixation Avoid pressure along the decubitus ulcer Recommend continuing wound care Recommend ID care for antibiotic management Continue medical measure per primary Appreciate general surgery consultation with debridement of the ulcer, plan for I+D with general surgery/wound care in OR tomorrow. No acute orthopedic intervention at this time Please feel free to call with any questions Tripp Gibson MD Oct 08, 2016 16:25 Impression Left femoral head/neck fracture versus osteomyelitis/osteopenia Problems: Risks & Benefits * We have reviewed the risks and benefits as well as the alternatives to surgery. All questions were answered to the patient's satisfaction and a counseling note to that effect. The patient has provided informed consent. * I have counseled the patient regarding the deleterious effects that smoking during the perioperative period can have upon wound healing, infection rates, and the overall rate of complications. Plan Continue nonweightbearing left extremity Avoid pressure along the decubitus ulcer Recommend wound care Recommend ID consult for antibiotic care Continue medical measure per primary Appreciate general surgery consultation with debridement of the ulcer. No acute orthopedic intervention at this time Please feel free to call with any questions Orthopedics will follow along. Tripp Gibson MD Oct 08, 2016 16:25
--- NOTE | 2016-10-08 17:05 | PCM.PNMED ---
Subjective Date of Service Oct 08, 2016 Subjective Patient just back from the OR after a decubitus ulcer debridement. Only complaint he has is that he is hungry. Exam Vital Signs Vital Sign - Last Date Time Temp Pulse Resp B/P Pulse Ox O2 Delivery O2 Flow Rate FiO2 10/08/16 15:37 36.6 85 18 157/87 98 Room Air 10/08/16 15:30 4 Intake and Output 10/07/16 10/07/16 10/08/16 Cumulative From/Thru 15:00 23:00 07:00 10/07/16 16:51 - 10/08/16 06:44 Intake Total 600 ml 600 ml Balance 600 ml 600 ml Intake Oral 600 ml 600 ml # Voids 2 2 Exam Constitutional: Middle-aged male who looks older than his stated age Head: Normocephalic atraumatic Chest: Clear to auscultation Cor: Regular rate and rhythm S1-S2 Abdomen: Soft nontender bowel sounds present Lab and Diagnostics Result Diagram: 10/08/16 0643 10/08/16 0643 X-Rays, CTs and MRIs PROCEDURE: X-RAY LEFT HIP COMPLETE, MINIMUM TWO VIEWS ([id number]) INDICATIONS: left hip/buttock wound TECHNIQUE: 2 views of the hip were acquired. COMPARISON: None. FINDINGS: Bones: Bones are osteopenic. Suspect fracture in the left femoral neck. There is severe osteopenia.. No suspicious bony lesions. The visualized pelvic ring appears intact. Soft tissues: No suspicious soft tissue calcifications or masses. Subcutaneous gas in the left buttock. IMPRESSION: 1. Suspect left femoral neck fracture. 2. Subcutaneous gas in the left buttock. Dictated by: Juvencio Lopez M.D. on 10/07/2016 at 20:54 Approved by: Juvencio Lopez M.D. on 10/07/2016 at 20:56 Assessment & Plan 55-year-old obese patient with history of smoking, PAD, insulin-dependent diabetes mellitus, diabetic retinopathy presented due to his left hip ulcer. Infected unstageable left hip pressure ulcer, present on admission, ongoing -In ER, xray of hip demonstrated left femoral neck fracture and subcutaneous gas in left buttock -Pt received dose of Zosyn in ER. -Leukocytosis 16.4,neutrophils 70.8 -Lactic acid 1.1, no need to trend -Procalcitonin 0.17 -Blood cultures pending -Treating pt with Vancomycin and Zosyn -Dilaudid available for pain -Per ER physician, surgery has been consulted and will likely perform surgery in AM -Went to the OR today with general surgery for ulcer debridement - Orthopedics consult saw patient Regarding possible hip fracture and felt that no further interventions are warranted at this time. Please see orders for details. Insulin-dependent diabetes mellitus type 2 with complication of diabetic retinopathy, present on admission, ongoing -Holding home medications -Low dose correctional insulin protocol initiated -Would recommend diabetic diet, however pt states he would leave AMA if given diabetic diet -General diet ordered for patient -A1C ordered Morbid obesity -BMI of 36.7 Tobacco use disorder, present on admission, ongoing -Nicotine patch ordered for patient -Encouraged cessation, pt not interested. Chronic issues Peripheral artery disease Chronic pain COPD PCP: Dr Cosme CODE STATUS: Full code VTE Prophylaxis: Sub-Q Heparin (Unfractionated) Resuscitation Status: CPR: Attempt Resuscitation Time spent 30 minutes Lucy Milton MD Oct 08, 2016 17:05
--- NOTE | 2016-10-08 17:14 | NUR ---
Wound Care Observed debridement in OR with Dr Fontanez, will apply NPWT in OR tomorrow with Dr Vora if wound is clean enough. Wounds are significant both stage 4 at this time at trochanter and ischium on left. Recommend clinitron bed at this time.
[2016-10-08] MEDS: Sucralfate 1,000 mg Tablet PO SCH (21:27)
[2016-10-08] MEDS: Insulin GLARgine 100 Unit/mL Syringe SUBQ SCH (21:28)
[2016-10-09] VITALS (10 sets, daily range): BP systolic 128–165; BP diastolic 66–92; PULSE 77–88; RESP 14–22; O2SAT 92–100
[2016-10-09] MEDS: Piperacillin-Tazo 3.375 Gm Inj 3.375 GM in Dextrose 5% Minibag Plus 50 ML IV SCH ×4 (01:26→17:42)
[2016-10-09] MEDS: 0.9% Sodium Chloride 1,000 ML IV SCH ×3 (03:00→13:06)
[2016-10-09] MEDS: HYDROmorphone 0.5 mg/0.5 mL iSecure Syringe IVPUSH PRN ×4 (04:18→20:47)
--- NOTE | 2016-10-09 05:01 | NUR ---
non-compliance/hypoglycemia pt has been put on a pureed diet, nectar thick until speech eval. despite education on risk of aspiration pt family brought him 3 large plates of regular textured food from the cafeteria. nursing staff did not give him any food other then pureed thick. BG was 196 at HS he was given his scheduled lantus. this AM pt had an episode of hypoglycemia. he was given 25ml of IV D50. at 15 min check BG was 103 and at the 30min check pt BG was 143. will continue to monitor blood glucose.
[2016-10-09] MEDS: Insulin LISPRO 300 Unit/3 mL Inj SUBQ SCH ×4 (08:00→22:00)
[2016-10-09] MEDS: Vancomycin Dose per Pharmacist XX SCH (08:30)
[2016-10-09] MEDS: Sucralfate 1,000 mg Tablet PO SCH ×4 (08:36→22:44)
[2016-10-09] MEDS ORDERED: Vancomycin Serum Trough XX ONE ×2 (09:30→22:30)
--- NOTE | 2016-10-09 12:41 | NUR ---
Pain Pt states he has generalized pelvic pain when questioned. Not talking or complaining of pain much today; he has been sleeping all morning. Requested a new order for IVP Dilaudid from the hospitalist since the current order was entered by anesthesia. Awaiting new orders.
[2016-10-09] MEDS: Vancomycin Inj 2,000 MG in 0.9% Sodium Chloride 500 ML IV SCH (13:12)
--- NOTE | 2016-10-09 13:48 | PCM.PNMED ---
Subjective Date of Service Oct 09, 2016 Subjective Patient was prescribed back to the OR today has been delayed until later this afternoon. Exam Vital Signs Vital Sign - Last Date Time Temp Pulse Resp B/P Pulse Ox O2 Delivery O2 Flow Rate FiO2 10/09/16 13:04 36.7 77 18 145/88 96 Room Air 10/08/16 15:30 4 Intake and Output 10/08/16 10/08/16 10/09/16 Cumulative From/Thru 14:59 22:59 06:59 10/07/16 16:51 - 10/09/16 05:45 Intake Total 1000 ml 586 ml 431 ml 2617 ml Output Total 700 ml 0 ml 1210 ml 1910 ml Balance 300 ml 586 ml -779 ml 707 ml Intake Oral 236 ml 431 ml 1267 ml IV Total 1000 ml 350 ml 1350 ml Output Urine Total 600 ml 0 ml 1210 ml 1810 ml Estimated Blood Loss 100 ml 100 ml # Voids 2 # Bowel Movements 0 0 0 Exam Constitutional: Middle-aged male who looks older than his stated age Head: Normocephalic atraumatic Chest: Clear to auscultation Cor: Regular rate and rhythm S1-S2 Abdomen: Soft nontender bowel sounds present Lab and Diagnostics Result Diagram: 10/08/16 0643 10/08/16 0643 X-Rays, CTs and MRIs PROCEDURE: X-RAY LEFT HIP COMPLETE, MINIMUM TWO VIEWS ([id number]) INDICATIONS: left hip/buttock wound TECHNIQUE: 2 views of the hip were acquired. COMPARISON: None. FINDINGS: Bones: Bones are osteopenic. Suspect fracture in the left femoral neck. There is severe osteopenia.. No suspicious bony lesions. The visualized pelvic ring appears intact. Soft tissues: No suspicious soft tissue calcifications or masses. Subcutaneous gas in the left buttock. IMPRESSION: 1. Suspect left femoral neck fracture. 2. Subcutaneous gas in the left buttock. Dictated by: Juvencio Lopez M.D. on 10/07/2016 at 20:54 Approved by: Juvencio Lopez M.D. on 10/07/2016 at 20:56 Assessment & Plan 55-year-old obese patient with history of smoking, PAD, insulin-dependent diabetes mellitus, diabetic retinopathy presented due to his left hip ulcer. Infected unstageable left hip pressure ulcer, present on admission, ongoing -In ER, xray of hip demonstrated left femoral neck fracture and subcutaneous gas in left buttock -Pt received dose of Zosyn in ER. -Leukocytosis 16.4,neutrophils 70.8 -Lactic acid 1.1, no need to trend -Procalcitonin 0.17 -Blood cultures pending -Treating pt with Vancomycin and Zosyn -Dilaudid available for pain -Per ER physician, surgery has been consulted and will likely perform surgery in AM -Went to the OR yesterday with general surgery for ulcer debridement - Orthopedics consult saw patient Regarding possible hip fracture and felt that no further interventions are warranted at this time. Please see consult for details. -For OR again today for debridement Insulin-dependent diabetes mellitus type 2 with complication of diabetic retinopathy, present on admission, ongoing -Holding home medications -Low dose correctional insulin protocol initiated -Would recommend diabetic diet, however pt states he would leave AMA if given diabetic diet -General diet ordered for patient -A1C ordered Morbid obesity -BMI of 36.7 Tobacco use disorder, present on admission, ongoing -Nicotine patch ordered for patient -Encouraged cessation, pt not interested. Chronic issues Peripheral artery disease Chronic pain COPD PCP: Dr Cosme CODE STATUS: Full code VTE Prophylaxis: Sub-Q Heparin (Unfractionated) Resuscitation Status: CPR: Attempt Resuscitation Time spent 30 minutes Lucy Milton MD Oct 09, 2016 13:48
--- NOTE | 2016-10-09 14:06 | NUR ---
NUTRITION ASSESSMENT: ASSESS: Pt is a 55yo M admitted for infected PU. Per WC, pt has 2 stg4 PU, one on his buttock and the other on his hip. Pt went to OR 10/08 for decubitus ulcer debridement. He is to return to the OR today. Pt is currently NPO for surgery. ST is to evaluate pt once he is no longer NPO. Per nursing notes, pt was placed on pureed diet yesterday until ST is able to evaluate him but pt and family were non-compliant with texture modification. Pt is also non-compliant with DM diet. PMHX: DM, dementia, PTSD, HTN, COPD, TIA, bilateral AKA LABS: Reviewed. (10/08) Glu 146, Ca 7.4, Alb 1.8 MEDS: Reviewed. GI: 0 BM recorded yet SKIN: stg 4 PU on hip and stg 4 PU on buttock per WC CURRENT WTS: 122kg, BMI 36.7kg/m2, IBW 80.9kg DIET: NPO for surgery EST. NEEDS: wounds, bilateral AKA (-32%) Kcals: 2505-2922kcal/day (30-35kcal/kg) Pro: 85-110g/day (1.5-2.0g/kg IBW NUTRITION DIAGNOSIS: 1.) Increased nutrient needs related to healing as evidence by pt with multiple stg 4 PU 2.) Chew/swallow difficulty related to dysphagia as evidence by need for ST eval and aspiration risks NUTRITION INTERVENTION: 1.) Advance diet per ST when appropriate 2.) Recommend addition of Indra BID to help with wound healing once diet advanced if this fits into pts diet modification per ST. MONITOR / EVAL: ST, wounds, diet advc, add supps?, PO, POC, nutrition status. Will continue to monitor per high nutrition risk guidelines
--- NOTE | 2016-10-09 16:46 | PCM.HPANE ---
Patient Data Surgeon Admitting Provider:Felicita Stephen MD Attending Provider:Felicita Stephen MD Primary Care Physician:Steven Cosme MD Other Provider: Reason for Visit Infected Pressure Ulcer Ht/WT & BMI Height (Feet): 6 Height (Inches): 0.00 Weight (Kilograms): 122.740 Body Mass Index 36.65 Allergies Coded Allergies: Sulfa (Sulfonamide Antibiotics) (Verified Allergy, Severe, hives, 10/07/16) meperidine (Verified Allergy, Severe, hives, 10/07/16) morphine (Verified Allergy, Severe, stopped breathing, 10/07/16) Past Anesthesia History Anesthesia History: Denies:: Anesthesia Reactions Diabetes History Hx Diabetes?: Yes (IDDM) Current Bedside Blood Glucose: 107 MRSA MRSA: No Medications Reported Medications Insulin Human Lispro (HumaLOG U100 Insulin Vial)100 Unit/Ml Unit Units SUBQ ACHS sliding scale insulin 10/07/16 Insulin Glargine (Lantus U100 Insulin Vial)100 Unit/Ml Vial70 Units SUBQ HS 10/07/16 Metoprolol Tartrate 50 Mg [id number] Mg PO TID 10/07/16 Lisinopril 5 Mg Tablet5 Mg PO BID 10/07/16 Sucralfate 1 Gm Tablet1 Gm PO QID 10/07/16 Dicyclomine 20 Mg [id number] Mg PO QID 10/07/16 oxyCODONE 10 Mg [id number] Mg PO QID 10/07/16 Methadone 5 Mg Tablet5 Mg PO QID 10/07/16 History History of ENT Problems?: No Hx of Heart Problems?: Yes Cardiovascular History: Positive for:: Hypertension Hx of Respiratory Problem?: Yes Respiratory History: Positive for:: COPD Dyspnea Hx Neurologic Problems?: Yes Neurological History: Positive for:: CVA (tia's) Dementia Headaches (migraines) Other Neurological Pertinent: PAD Hx of GI Problems?: No Hx of Problems?: No Male Hx: Positive for:: Prostate Problems Hx Musculoskeletal Problems?: Yes Musculoskeletal History: Positive for:: Back Injury (chronic pain sme, DJD) Hx of Psycho/Social Problems?: Yes Psycho Social History: Positive for:: Anxiety (PTSD) Hx Surgeries?: Yes (bilateral AKA's) Hx Any Other Health Problems?: Yes Other History: Positive for:: Hospitalization Denies:: Cancer Thyroid Disease History Blood Transfusions: Positive for:: Accept Blood Products? Hx Diabetes: Yes (IDDM)Bedside Blood Glucose: 107 Hx Alcohol Use: Yes ("quit")Hx Substance Use: No Smoking Status: Current Every Day Smoker Have You Smoked inLast 12 mo: Yes Stop/Bang Treated for Sleep Apnea?: No Do You Have a CPAP Machine?: No S-Snoring: Do You Snore Loudly: Yes T-Tired: feel tired, fatigued: Yes O-Obsered: Observed not breath: No P-Blood Pressure: treated: Yes B- Body Mass Index > 35 kg/m2: No A- Age over 50: Yes N- Neck Large Circumference: Yes G- Gender Male: Yes CARLOS Total Score: 5 CARLOS Risk Assessment: High Risk, =/>3 Yes CARLOS Category 2: Yes Risk Assessment Category Category 1A: Patient has history of documented sleep apnea, and HAS NOT received any narcotic, sedative or anesthesia administration during this stay. Category 1B: Patient has history of documented sleep apnea, and HAS received any narcotic , sedative or anesthesia administration during this stay Category 2: Patient has SUSPECTED Obstructive Sleep Apnea, and HAS received any narcotic , sedative or anesthesia administration during this stay. Category 3: Patient has SUSPECTED Obstructive Sleep Apnea and HAS NOT received narcotic, sedative or anesthesia administration during this stay. Category 4: Outpatient in Procedural Areas with known sleep apnea or who screen positive for High Risk via the STOP/BANG questionnaire. Exam Exam Vital Signs Vital Signs Date Time Temp Pulse Resp B/P Pulse Ox O2 Delivery O2 Flow Rate FiO2 10/09/16 13:04 36.7 77 18 145/88 96 Room Air General Appearance: Alert, Oriented X3, Cooperative, No Acute Distress HEENT/AIRWAY: MP 2 Lungs: Clear to Auscultation, Normal Air Movement Heart: Exam Unremarkable, Regular Rate/Rhythm, No Murmurs/Rubs/Gallops Meds/Labs/Diagnostics Admission Meds Current Medications Insulin Glargine (Lantus Insulin Inj) 70 unit HS SUBQ Last administered on 10/08 21:28; Start 10/08/16 at 21:00 Lisinopril (Zestril) 5 mg BID PO Last administered on 10/08/16 21:27; Start at 20:30 Methadone HCl (Dolophine) 5 mg QID PO Last administered on 10/08/16 21:27; Start 10/08/16 at 21:30 Metoprolol Tartrate (Lopressor) 50 mg TID PO Last administered on 10/09/16 08: 48; Start 10/08/16 at 20:30; Stop 10/09/16 at 15:48; Status DC Sucralfate (Carafate) 1,000 mg QID PO Last administered on 10/08/16 21:27; Start 10/08/16 at 21:30 Dicyclomine HCl (Bentyl) 40 mg QID PO Last administered on 10/08/16 21:26; Start 10/08/16 at 21:30 Metoprolol Tartrate (Lopressor) 50 mg TID PO Last administered on 10/09/16 15: 52; Start 10/09/16 at 15:48 Bedside Blood Glucose: 107 Labs Test 10/07/16 19:13 10/08/16 06:43 10/08/16 22:15 Hemoglobin A1c 7.7% (4.8-5.6) Lactic Acid Level 1.1mmol/L (0.4-2.0) White Blood Count 14.0th/mm3 (3.8-10.1) Red Blood Count 3.41mil/mm3 (4.40-5.80) Hemoglobin 8.4g/dL (13.8-17.2) Hematocrit 28.3% (41.0-50.0) Mean Corpuscular Volume 83.0fL (81-100) Mean Corpuscular Hemoglobin 24.6pg (27.0-35.0) Mean Corpuscular Hemoglobin Concent 29.7% (32.0-37.0) Red Cell Distribution Width 14.4% (12.3-15.4) Platelet Count 331bil/L (150-400) Neutrophils (%) (Auto) 65.1% (40-74) Lymphocytes (%) (Auto) 21.5% (14-46) Monocytes (%) (Auto) 9.3% (4-12) Eosinophils (%) (Auto) 3.5% (0-5) Basophils (%) (Auto) 0.1% (0-3) Sodium Level 137mEq/L (134-144) Potassium Level 4.2mEq/L (3.5-5.2) Chloride Level 99mEq/L (97-108) Carbon Dioxide Level 27mmol/L (18-29) Blood Urea Nitrogen 15mg/dL (6-24) Creatinine 0.93mg/dL (0.76-1.27) Estimat Glomerular Filtration Rate 90mL/min (>59) Glucose Level 146mg/dL (60-99) Calcium Level 7.4mg/dL (8.5-10.1) Total Bilirubin 0.2mg/dL (0.0-1.2) Aspartate Amino Transf (AST/SGOT) 10U/L (0-50) Alanine Aminotransferase (ALT/SGPT) 8U/L (0-44) Alkaline Phosphatase 129U/L (25-150) Total Protein 5.6g/dL (6.4-8.4) Albumin 1.8g/dL (3.4-5.0) Procalcitonin 0.17ng/mL (0.00-0.08) Hold Red Top Tube Received (Received) Plan Impression Patient chart reviewed, patient interviewed and anesthestic plan with risks, benefits, and alternatives discussed, and informed consent obtained. NPO Status: 10/07/16 2400 ASA Physical Status: ASA3 Severe Disease Anesthetic Plan: GA Bene/Risks/Altern/Consents: Yes HP Complete Prior to Induction: Yes Zane Fox MD Oct 09, 2016 16:46
[2016-10-09] MEDS: Lactated Ringer's 1,000 ML IV SCH ×3 (17:00→19:29)
--- NOTE | 2016-10-09 17:18 | NUR ---
Pt off unit Pt to O.R. at 1700 hrs. credit card clerk called spouse to notify of pt going to surgery. Peña sent to O.R. with pt.
[2016-10-09] MEDS ORDERED: Lactated Ringer's 500 ML IV PRN (18:18)
[2016-10-09] MEDS ORDERED: MetoCLOpramide 5 mg/mL 2 mL Inj IVPUSH PRN (18:20)
[2016-10-09] MEDS ORDERED: EPHEDrine Sulfate 50 mg/mL Inj IVPUSH PRN (18:20)
[2016-10-09] MEDS ORDERED: HYDROmorphone 1 mg/mL Inj IVPUSH PRN (18:20)
[2016-10-09] MEDS ORDERED: Phenylephrine 10,000 mCg/mL Inj IVPUSH PRN (18:20)
[2016-10-09] MEDS ORDERED: Ondansetron 2 mg/mL 2 mL Inj IVPUSH PRN (18:20)
[2016-10-09] MEDS ORDERED: Dexamethasone 4 mg/mL Inj IVPUSH PRN (18:20)
[2016-10-09] MEDS ORDERED: Atropine 0.4 mg/mL Inj IVPUSH PRN (18:20)
[2016-10-09] MEDS ORDERED: hydrALAZINE 20 mg/mL Inj IVPUSH PRN (18:20)
[2016-10-09] MEDS ORDERED: Labetalol 5 mg/mL 4 mL Inj IV PRN (18:20)
--- NOTE | 2016-10-09 18:47 | NUR ---
Wound Care NPWT applied in OR to left hip and ischial pressure ulcers, blackfoam 150 mmHg and continuous therapy. Good seal was attained. Next dressing change Wednesday or Wednesday.
[2016-10-09] MEDS: fentaNYL-PF 50 mCg/mL 2 mL Inj IVPUSH PRN ×3 (18:51→19:09)
--- NOTE | 2016-10-09 18:57 | PCM.ANEP1 ---
Post Anesthesia Phase 1 PACU Phase 1 Assessment Date of Service: Oct 07, 2016 Vital Signs Vital Signs Date Time Temp Pulse Resp B/P Pulse Ox O2 Delivery O2 Flow Rate FiO2 10/09/16 13:04 36.7 77 18 145/88 96 Room Air Anesthetic Administered: GA Level of Alertness: Awake, talking NOGUEIRA's with Equal Strength: Yes Pain: No Pain Scale Score: 0 Nausea or Vomiting: No Oxygen Delivery: Simple Mask Lungs: Clear to Auscultation, Normal Air Movement Zane Fox MD Oct 09, 2016 18:57
--- NOTE | 2016-10-09 18:58 | PCM.ANEP2 ---
Post Anesthesia Evaluation ASA/CMS Post Anesthesia VS in Patient's Normal Range?: Yes Resp Stable; Airway Patent?: Yes CV Function & Hydration Stable: Yes Mental Status Recovered?: Yes Pain control Satisfactory?: Yes N/V Control Satisfactory?: Yes Zane Fox MD Oct 09, 2016 18:58
--- NOTE | 2016-10-09 19:48 | OP ---
[address] [address] OPERATIVE REPORT PATIENT: TONIO SHABAZZ : 1960 MR#: [id number] ADMIT: 10/07/2016 JOB ID: [id number] DATE OF SURGERY: 10/09/2016 ANESTHESIA: General. PREOPERATIVE DIAGNOSIS(ES): Left greater trochanter and left ischial decubitus ulcers. POSTOPERATIVE DIAGNOSIS(ES): Left greater trochanter and left ischial decubitus ulcers. OPERATIVE PROCEDURE: Exam under anesthesia with placement of wound VAC. SURGEON: Mike Vora MD. HEALTH INFORMATICS INSTRUCTOR: Morris MOLINA. (The expertise of the licensed occupational therapy assistant was required for the safe and timely completion of this case.) COMPLICATIONS: None. ESTIMATED BLOOD LOSS: None. CONDITION: Satisfactory. SPECIMEN: None. FINDINGS: Both wounds were inspected. The greater trochanter wound had healthy viable tissue in the bed. The wound edges appeared viable. The ischial wound appeared similarly. A wound VAC was placed into both wounds. INDICATION: The patient is a 55-year-old, double [id number] amputee with decubitus ulcers. He had recently been taken to the operating room by one my colleagues for extensive debridement. I have taken him back for exam under anesthesia, possible further debridement and possible wound VAC placement. OPERATIVE TECHNIQUE: The patient was taken to the operating room and placed in supine position. General anesthesia was administered. He was then placed in the right lateral decubitus position. Left hip and his perineum were prepped and draped in standard surgical fashion, and a procedural pause was performed. The wounds were then inspected. Findings were as above. A wound VAC was then placed.
[2016-10-09] MEDS: Insulin GLARgine 100 Unit/mL Syringe SUBQ SCH (21:00)
--- NOTE | 2016-10-09 23:51 | PCM.PHAPRO ---
Progress Date of Service: Oct 09, 2016 Left hip wound Vancomycin Management per Pharmacy: Indication: Infected L hip ulcer/necrosis+ Goal Trough: 15-20 mg/dL Age: 55 yo male with bilateral above the knee amputation and history significant for diabetes and peripheral artery disease Weight: 122.7 kg Labs: WBC: 14 (10/08) SrCr: 0.93 (10/08) Procalcitonin: 0.2 Est CrCl: ~100 mL/min Nephrotoxic Risks: Diabetes, peripheral artery disease, Zosyn, lisinopril Vancomycin Trough: 37.0 - supratherapeutic Recommendation: Hold x ~16 hours (approximately 1 half life). Random vancomcyin level @ 1800 on 10/10. Thank You, Vane Chairez, Pharm D. Vane Chairez Oct 09, 2016 23:51
[2016-10-10] MEDS: Piperacillin-Tazo 3.375 Gm Inj 3.375 GM in Dextrose 5% Minibag Plus 50 ML IV SCH ×3 (01:04→16:36)
--- NOTE | 2016-10-10 01:18 | NUR ---
post op pt arrived back to [facility] at 2009. he was transferred with sliding board back on to his [facility] bed. he is alert and oriented x3, VSS, afebrile. he is on 2L of oxygen and sp02 is mid 90's. wound vac is in place, no drainage yet. set to 150 continuous. pt immediately requesting food. pt was reminded that he is on a pureed diet, and honey thick liquids pending a swallow eval from a speech pathologist. he was also reminded that he was on a carb consistent diet. pt became extremely angry, cussing and yelling. he said to "tell the doctor do change my order back to general or he will be talking to my quality control lead" "you can't starve me". hospitalist was notified who said to have the patient sign a diet against medical advice form and then change his diet to general, thin liquids. pt was ordered sandwiches but when he got them he said they were too difficult for him to eat. he requested soup and had a total of 3 cups of soup. He has been drinking thin liquids without any sign of coughing or choking. BG was 123. Lantus was held. Pt was concerned he would drop again in the night because he has eaten very little over the last 2 days. will cover with sliding scale insulin. will continue to monitor.
--- NOTE | 2016-10-10 01:33 | NUR ---
critical trough vancomycin lab called and informed nurse of a critical trough vancomycin of 37.0. pharmacy was notified who put a hold on vancomycin. the 2300 dose was not given. care continues.
[2016-10-10 06:45] VITALS: BP 161/79; PULSE 77; RESP 18; O2SAT 96
[2016-10-10] MEDS ORDERED: Propofol 10,000 mCg/mL 20 mL Inj ONE (06:48)
[2016-10-10] MEDS ORDERED: Phenylephrine/NS 100 mCg/mL 10 mL Syringe IVPUSH ONE (06:48)
[2016-10-10] MEDS ORDERED: fentaNYL-PF 50 mCg/mL 2 mL Inj ONE (06:48)
[2016-10-10] MEDS ORDERED: Glycopyrrolate 0.2 mg/mL 5 mL Inj ONE (06:48)
--- NOTE | 2016-10-10 06:54 | NUR ---
medications 630 meds not given at this time. pt did not want to be disturbed. he also refused lab draws this morning. nurse asked lab to come back in a couple of hours. day shift nurse notified to try and give pt his AM meds when he wakes up.
[2016-10-10] MEDS: Vancomycin Dose per Pharmacist XX SCH (08:30)
[2016-10-10] MEDS: Insulin LISPRO 300 Unit/3 mL Inj SUBQ SCH ×4 (09:00→22:00)
[2016-10-10] MEDS: 0.9% Sodium Chloride 1,000 ML IV SCH ×2 (09:06→21:20)
--- NOTE | 2016-10-10 09:15 | NUR ---
Evaluation completed. Please go to "Notes" then click on "Assessments and Notes" (bottom left corner of screen). Then select appropriate discipline tab on top of screen.
--- NOTE | 2016-10-10 09:23 | PCM.PNSURG ---
Subjective Visit Information: Reason for Visit Infected Pressure Ulcer Surgery/Surgery Date I&D L BUTTOCK WOUND 10/09/16 Post-Op Day # Date of Admission: Oct 07, 2016 at 19:27 Hospital Day # Subjective: operative findings explained to pt today, c/o blown IV and wanting a PICC line Objective Objective Awake in bed VAC in place Laird in place Vital Sign- Last 8 Hours Date Time Temp Pulse Resp B/P Pulse Ox O2 Delivery O2 Flow Rate FiO2 10/10/16 06:45 36.9 77 18 161/79 96 Room Air Intake and Output- Last 8 Hour 10/10/16 Cumulative From/Thru 07:00 10/07/16 16:51 - 10/10/16 06:59 Intake Total 1500 ml 7778 ml Output Total 1750 ml 5360 ml Balance -250 ml 2418 ml Intake Oral 850 ml 2117 ml IV Total 650 ml 5661 ml Output Urine Total 1750 ml 5260 ml Estimated Blood Loss 100 ml # Voids 2 # Bowel Movements 0 0 Result Diagram: 10/08/16 0643 10/08/16 0643 Assessment & Plan Impression POD #2 s/p decub ulcer debridement x2 VAC dressing Problems: Plan Pain control Wound care and VAC Plan per hospitalist team VTE Prophylaxis: Sub-Q Heparin (Unfractionated) Resuscitation Status: CPR: Attempt Resuscitation King Fontanez MD Oct 10, 2016 09:23
[2016-10-10] MEDS: Alum-Mag Hydrox-Simeth 30 mL Suspension PO PRN ×2 (09:25→13:32)
[2016-10-10] MEDS ORDERED: Sodium Chloride LOK Flush 10 mL Syringe IVFLUSH PRN (11:10)
[2016-10-10] MEDS: Sucralfate 1,000 mg Tablet PO SCH ×4 (11:30→22:41)
--- NOTE | 2016-10-10 13:57 | PCM.PNMED ---
Subjective Date of Service Oct 10, 2016 Subjective Patient having some nausea this afternoon but no vomitus. Patient requests having a PICC line placed for easier IV access.. Exam Vital Signs Vital Sign - Last Date Time Temp Pulse Resp B/P Pulse Ox O2 Delivery O2 Flow Rate FiO2 10/10/16 06:45 36.9 77 18 161/79 96 Room Air 10/09/16 20:20 3.00 Intake and Output 10/09/16 10/09/16 10/10/16 Cumulative From/Thru 14:59 22:59 06:59 10/07/16 16:51 - 10/10/16 06:59 Intake Total 1100 ml 2561 ml 1500 ml 7778 ml Output Total 1700 ml 1750 ml 5360 ml Balance 1100 ml 861 ml -250 ml 2418 ml Intake Oral 0 ml 850 ml 2117 ml IV Total 1100 ml 2561 ml 650 ml 5661 ml Output Urine Total 1700 ml 1750 ml 5260 ml Estimated Blood Loss 100 ml # Voids 2 # Bowel Movements 0 0 0 Exam Constitutional: Middle-aged male who looks older than his stated age Head: Normocephalic atraumatic Chest: Clear to auscultation Cor: Regular rate and rhythm S1-S2 Abdomen: Soft with some mild tenderness in the epigastrium, bowel sounds presen Lab and Diagnostics Laboratory Tests 72 Hours Test 10/07/16 19:13 10/08/16 06:43 10/08/16 22:15 10/09/16 22:21 White Blood Count 16.4th/mm3 (3.8-10.1) 14.0th/mm3 (3.8-10.1) Red Blood Count 3.89mil/mm3 (4.40-5.80) 3.41mil/mm3 (4.40-5.80) Hemoglobin 9.6g/dL (13.8-17.2) 8.4g/dL (13.8-17.2) Hematocrit 32.0% (41.0-50.0) 28.3% (41.0-50.0) Mean Corpuscular Volume 82.3fL (81-100) 83.0fL (81-100) Mean Corpuscular Hemoglobin 24.7pg (27.0-35.0) 24.6pg (27.0-35.0) Mean Corpuscular Hemoglobin Concent 30.0% (32.0-37.0) 29.7% (32.0-37.0) Red Cell Distribution Width 14.6% (12.3-15.4) 14.4% (12.3-15.4) Platelet Count 359bil/L (150-400) 331bil/L (150-400) Neutrophils (%) (Auto) 70.8% (40-74) 65.1% (40-74) Lymphocytes (%) (Auto) 15.7% (14-46) 21.5% (14-46) Monocytes (%) (Auto) 9.6% (4-12) 9.3% (4-12) Eosinophils (%) (Auto) 3.2% (0-5) 3.5% (0-5) Basophils (%) (Auto) 0.1% (0-3) 0.1% (0-3) Sodium Level 135mEq/L (134-144) 137mEq/L (134-144) Potassium Level 3.8mEq/L (3.5-5.2) 4.2mEq/L (3.5-5.2) Chloride Level 95mEq/L (97-108) 99mEq/L (97-108) Carbon Dioxide Level 29mmol/L (18-29) 27mmol/L (18-29) Blood Urea Nitrogen 15mg/dL (6-24) 15mg/dL (6-24) Creatinine 0.92mg/dL (0.76-1.27) 0.93mg/dL (0.76-1.27) Estimat Glomerular Filtration Rate 91mL/min (>59) 90mL/min (>59) Glucose Level 105mg/dL (60-99) 146mg/dL (60-99) Hemoglobin A1c 7.7% (4.8-5.6) Lactic Acid Level 1.1mmol/L (0.4-2.0) Calcium Level 8.0mg/dL (8.5-10.1) 7.4mg/dL (8.5-10.1) Total Bilirubin < 0.2mg/dL (0.0-1.2) 0.2mg/dL (0.0-1.2) Aspartate Amino Transf (AST/SGOT) 9U/L (0-50) 10U/L (0-50) Alanine Aminotransferase (ALT/SGPT) 9U/L (0-44) 8U/L (0-44) Alkaline Phosphatase 124U/L (25-150) 129U/L (25-150) Total Protein 7.1g/dL (6.4-8.4) 5.6g/dL (6.4-8.4) Albumin 2.1g/dL (3.4-5.0) 1.8g/dL (3.4-5.0) Procalcitonin 0.17ng/mL (0.00-0.08) 0.17ng/mL (0.00-0.08) Hold Red Top Tube Received (Received) Vancomycin Level Trough 37.0mcg/mL Result Diagram: 10/08/1664210/08/16642 Microbiology Name: TONIO SHABAZZ Age/Sex: 55/M Attend Dr: German Soto MD Acct: [id number] Unit: [id number] Status: REG R Location: [facility] Re10/01/16 Disch: Specimen: [id number] Collected: 10/01/16 Status: COMP Req#: [id number] Received: 10/01/16 Source: HIP Sp Desc : LEFT Subm Dr: Keith Cervantes MD Ordered: CS & ANAC & GS Comments: Collected by Nurse/Unit? Y/N Y Comment: L HIP WOUND Procedure Result Verified Site Microbiology JAZZY GS (GRAM STAIN) Final 10/01/16 GRAM STAIN RESULT MANY POLYS MODERATE GRAM POS COCCI MANY GRAM VARIABLE RODS JAZZY CULT AEROBIC Final 10/07/16 MODERATE NORMAL SHAYLA PRESENT ANAEROBIC CULTURE Final 10/07/16 No anaerobes isolated X-Rays, CTs and MRIs PROCEDURE: X-RAY LEFT HIP COMPLETE, MINIMUM TWO VIEWS ([id number]) INDICATIONS: left hip/buttock wound TECHNIQUE: 2 views of the hip were acquired. COMPARISON: None. FINDINGS: Bones: Bones are osteopenic. Suspect fracture in the left femoral neck. There is severe osteopenia.. No suspicious bony lesions. The visualized pelvic ring appears intact. Soft tissues: No suspicious soft tissue calcifications or masses. Subcutaneous gas in the left buttock. IMPRESSION: 1. Suspect left femoral neck fracture. 2. Subcutaneous gas in the left buttock. Dictated by: Juvencio Lopez M.D. on 10/07/2016 at 20:54 Approved by: Juvencio Lopez M.D. on 10/07/2016 at 20:56 Assessment & Plan 55-year-old obese patient with history of smoking, PAD, insulin-dependent diabetes mellitus, diabetic retinopathy presented due to his left hip ulcer. Infected unstageable left hip pressure ulcer, present on admission, ongoing -In ER, xray of hip demonstrated left femoral neck fracture and subcutaneous gas in left buttock -Pt received dose of Zosyn in ER. -Leukocytosis 16.4,neutrophils 70.8 -Lactic acid 1.1, no need to trend -Procalcitonin 0.17 -Blood cultures pending and so far negative -Treating pt with Vancomycin and Zosyn -Dilaudid available for pain -Went to the OR yesterday with general surgery for ulcer debridement - Orthopedics consult saw patient Regarding possible hip fracture and felt that no further interventions are warranted at this time. Please see consult for details. Insulin-dependent diabetes mellitus type 2 with complication of diabetic retinopathy, present on admission, ongoing -Holding home medications -Low dose correctional insulin protocol initiated -Would recommend diabetic diet, however pt states he would leave AMA if given diabetic diet -General diet ordered for patient Morbid obesity -BMI of 36.7 Tobacco use disorder, present on admission, ongoing -Nicotine patch ordered for patient -Encouraged cessation, pt not interested. Chronic issues Peripheral artery disease Chronic pain COPD PCP: Dr Cosme CODE STATUS: Full code VTE Prophylaxis: Sub-Q Heparin (Unfractionated) Resuscitation Status: CPR: Attempt Resuscitation Time spent 30 minutes Lucy Milton MD Oct 10, 2016 13:57
--- NOTE | 2016-10-10 15:23 | NUR ---
Social Work- Initial Assessment Data: See Initial Assessment. Pt is a 55 year old male admitted 10/07/16 for infected pressure ulcer per H&P. Pt's insurance is [employer] with [facility] and PCP is Steven Cosme MD. EMR reviewed. SW met with patient at bedside to discuss discharge planning, SW role explained. Pt was alert and oriented x3. Pt resides in an apartment in [place] with his where he receives minimal assistance with ADLs. Pt is a double leg amputee who [place] a wheelchair at base. Pt does not drive. Pt has no HH history. Pt states he received rehab from [facility] 6 month prior. SW discussed DPOA/Advance Directive and encouraged pt to bring a completed copy to the hospital. SW provided phone number and plan on white board. SW to follow for HH or wound care needs. Pt's Kasia [phone] to transport patient home at discharge. SW continues to follow for discharge needs. Assessment: Pt who may benefit from HH. Plan: SW to follow for HH or wound care needs. Pt's Kasia [phone] to transport patient home at discharge. SW continues to follow for discharge needs. REN Fernandez Addendum: 10/10/16 at 1533 by FRANCISCO LUCERO SS Amended: Links added.
[2016-10-10 16:00] VITALS: BP 195/83; PULSE 83; RESP 18; O2SAT 97
[2016-10-10] MEDS: HYDROmorphone 0.5 mg/0.5 mL iSecure Syringe IVPUSH PRN ×2 (16:36→20:44)
--- NOTE | 2016-10-10 16:59 | DRSVH ---
PROCEDURE: X-RAY PICC LINE PLACEMENT BY NURSE ([id number]) INDICATIONS: iv access with antibiotics COMPARISON: None. FINDINGS: PICC was placed by the intravenous therapy team from the right side. Fluoroscopic spot fi lm demonstrates tip of PICC in the distal SVC. IMPRESSION: Tip of PICC lies within the distal SVC. Dictated by: Quoc Nam M.D. on 10/10/2016 at 16:57 Approved by: Quoc Nam M.D. on 10/10/2016 at 16:58
--- NOTE | 2016-10-10 17:00 | NUR ---
NUTRITION FOLLOW-UP: ASSESS: 55 YO male admitted with infected PU. Per WC, pt has 2 stg 4 PU's, one on his buttock and the other on his hip. Pt went to OR 10/08 and 10/09 for decubitus ulcer debridement. Diet advanced today to mechanical soft, thin liquids, per ST order. Per nursing notes, pt was placed on pureed diet 10/[address] able to evaluate him, but pt and family were non-compliant with texture modification. Pt is also non-compliant with DM diet, refusing to eat anything but general diet. I attempted to see patient to recommend Indra nutrition supplement that includes glutamine and arginine for wound healing, but nursing was in room performing dressing changes. Left Indra supplement, diet soda, with instructions how to dose. PMHX:DM, dementia, PTSD, HTN, COPD, TIA, bilateral AKA LABS: Reviewed. Glu 147, A1c 7.7, Ca 7.4, Alb 1.8, Procalcitonin 0.17. MEDS: Reviewed. Insulin. GI:0 BM recorded yet SKIN: Stg 4 PU on hip and stg 4 PU on buttock per WC WT: 122 kg, BMI 36.7kg/m2, IBW 80.9kg DIET: Mechanical soft, thin liquids. PO intake not yet recorded. EST. NEEDS: wounds, bilateral AKA (-32%) Kcals: 2505-2922kcal/day (30-35kcal/kg) Pro: 85-110g/day (1.5-2.0g/kg IBW NUTRITION DIAGNOSIS: 1) Increased nutrient needs related to healing as evidence by pt with multiple stg 4 PU - PERSISTS. 2) Chew/swallow difficulty related to dysphagia as evidence by need for ST eval and aspiration risk - PERSISTS. NUTRITION INTERVENTION: 1) Advance diet per ST when appropriate 2) Added Indra BID to help with wound healing and left instructions with nursing. MONITOR / EVAL: ST, wounds, diet advc, supplement tolerance, PO, POC, nutrition status. Will continue to monitor per high nutrition risk guidelines
[2016-10-10] MEDS ORDERED: Vancomycin Serum Trough XX ONE (18:00)
[2016-10-10 19:39] VITALS: BP 154/79; PULSE 87; RESP 16; O2SAT 94
[2016-10-10] MEDS: Insulin GLARgine 100 Unit/mL Syringe SUBQ SCH (22:10)
--- NOTE | 2016-10-10 23:49 | PCM.PHAPRO ---
Progress Date of Service: Oct 10, 2016 Vancomycin dosing by pharmacy for 55 y/o man O: * The patient had a vancomycin trough level of 37 mcg/mL on 10/09 * No vancomycin has been given since * Random level of 21.2 mcg/mL 22 hours after first level * No SCr level since 10/08 A: * Based on the two levels, estimated vancomycin half-life is about 28 hours (Ke = 0.025) * Using an estimated volume of distribution of 67 liters (0.55 L/kg), 1000 mg every 24 hours would appear to achieve an appropriate trough level * Urine output appears okay P: * Giving one vancomycin 1000 mg dose @1130 on 10/11 (vancomycin serum level should be around 15 mcg/mL at that time) * Drawing another vancomycin level 24 hours after the dose to determine if 1000 mg every 24 hours is appropriate * Target vancomycin trough range of 15 - 20 mcg/mL * Drawing a BMP tomorrow morning Thank you. Pharmacy will continue to follow. Barbra Doan, PharmD Barbra Doan Oct 10, 2016 23:49
[2016-10-11] MEDS: HYDROmorphone 0.5 mg/0.5 mL iSecure Syringe IVPUSH PRN ×6 (00:34→23:25)
[2016-10-11] MEDS: Piperacillin-Tazo 3.375 Gm Inj 3.375 GM in Dextrose 5% Minibag Plus 50 ML IV SCH ×3 (00:35→16:15)
[2016-10-11 04:39] VITALS: BP 162/84; PULSE 75; RESP 18; O2SAT 97
[2016-10-11] MEDS: 0.9% Sodium Chloride 1,000 ML IV SCH ×2 (04:57→16:15)
--- NOTE | 2016-10-11 06:25 | NUR ---
Medications/Pain Pt c/o 02/22 hip pain at start of shift. IV Dilaudid given PRN, effective per patient. Patient cooperative with care throughout shift. PM meds crushed in pudding one at a time per patient request. Pt requesting frequent snacks. No s/s aspiration. Q2 turns, patient assists using trapeze bar.
[2016-10-11] MEDS: Sucralfate 1,000 mg Tablet PO SCH ×4 (07:21→20:38)
[2016-10-11] MEDS: Insulin LISPRO 300 Unit/3 mL Inj SUBQ SCH ×4 (07:57→22:00)
[2016-10-11] MEDS: Vancomycin Dose per Pharmacist XX SCH (08:00)
--- NOTE | 2016-10-11 09:18 | PCM.PNMED ---
Subjective Date of Service Oct 11, 2016 Subjective Patient eating breakfast currently. He denies significant nausea. He has questions as to when he will be able to go home. Exam Vital Signs Vital Sign - Last Date Time Temp Pulse Resp B/P Pulse Ox O2 Delivery O2 Flow Rate FiO2 10/11/16 04:39 36.4 75 18 162/84 97 Room Air 10/09/16 20:20 3.00 Intake and Output 10/10/16 10/10/16 10/11/16 Cumulative From/Thru 14:59 22:59 06:59 10/07/16 16:51 - 10/11/16 06:17 Intake Total 1216 ml 300 ml 1905 ml 26838 ml Output Total 1750 ml 1000 ml 1050 ml 9160 ml Balance -534 ml -700 ml 855 ml 2039 ml Intake Oral 850 ml 300 ml 618 ml 3885 ml IV Total 366 ml 1287 ml 7314 ml Output Urine Total 1750 ml 1000 ml 1050 ml 9060 ml Estimated Blood Loss 100 ml # Voids 2 # Bowel Movements 0 0 0 Exam Constitutional: Middle-aged male who looks older than his stated age Head: Normocephalic atraumatic Chest: Clear to auscultation Cor: Regular rate and rhythm S1-S2 Abdomen: Soft with some mild tenderness in the epigastrium, bowel sounds presen Lab and Diagnostics Laboratory Tests 72 Hours Test 10/08/16 22:15 10/09/16 22:21 10/10/16 20:25 10/11/16 04:50 Hold Red Top Tube Received (Received) Vancomycin Level Trough 37.0mcg/mL Random Vancomycin Level 21.2ug/mL Rx Sodium Level 141mEq/L (134-144) Potassium Level 3.8mEq/L (3.5-5.2) Chloride Level 103mEq/L (97-108) Carbon Dioxide Level 29mmol/L (18-29) Blood Urea Nitrogen 7mg/dL (6-24) Creatinine 0.83mg/dL (0.76-1.27) Estimat Glomerular Filtration Rate 102mL/min (>59) Glucose Level 137mg/dL (60-99) Calcium Level 7.2mg/dL (8.5-10.1) Result Diagram: 10/08/16 0643 10/11/16 0450 Microbiology Name: TONIO SHABAZZ Age/Sex: 55/M Attend Dr: German Soto MD Acct: [id number] Unit: [id number] Status: REG RCR Location: [facility] Re10/01/16 Disch: Specimen: [id number] Collected: 10/01/16 Status: COMP Req#: [id number] Received: 10/01/16 Source: HIP Sp Desc : LEFT Subm Dr: Keith Cervantes MD Ordered: CS & ANAC & GS Comments: Collected by Nurse/Unit? Y/N Y Comment: L HIP WOUND Procedure Result Verified Site Microbiology JAZZY GS (GRAM STAIN) Final 10/01/16-2246 GRAM STAIN RESULT MANY POLYS MODERATE GRAM POS COCCI MANY GRAM VARIABLE RODS JAZZY CULT AEROBIC Final 10/07/16-1027 MODERATE NORMAL SHAYLA PRESENT ANAEROBIC CULTURE Final 10/07/16-1027 No anaerobes isolated X-Rays, CTs and MRIs PROCEDURE: X-RAY LEFT HIP COMPLETE, MINIMUM TWO VIEWS ([id number]) INDICATIONS: left hip/buttock wound TECHNIQUE: 2 views of the hip were acquired. COMPARISON: None. FINDINGS: Bones: Bones are osteopenic. Suspect fracture in the left femoral neck. There is severe osteopenia.. No suspicious bony lesions. The visualized pelvic ring appears intact. Soft tissues: No suspicious soft tissue calcifications or masses. Subcutaneous gas in the left buttock. IMPRESSION: 1. Suspect left femoral neck fracture. 2. Subcutaneous gas in the left buttock. Dictated by: Juvencio Lopez M.D. on 10/07/2016 at 20:54 Approved by: Juvencio Lopez M.D. on 10/07/2016 at 20:56 Assessment & Plan 55-year-old obese patient with history of smoking, PAD, insulin-dependent diabetes mellitus, diabetic retinopathy presented due to his left hip ulcer. Infected unstageable left hip pressure ulcer, present on admission, ongoing -In ER, xray of hip demonstrated left femoral neck fracture and subcutaneous gas in left buttock -Pt received dose of Zosyn in ER. -Leukocytosis 16.4,neutrophils 70.8 -Lactic acid 1.1, no need to trend -Procalcitonin 0.17 -Blood cultures pending and so far negative -Treating pt with Vancomycin and Zosyn -Dilaudid available for pain -Went to the OR 2 days with general surgery for ulcer debridement - Orthopedics consult saw patient Regarding possible hip fracture and felt that no further interventions are warranted at this time. Please see consult for details. -Day # 4 of iv vancomycin and zosyn Insulin-dependent diabetes mellitus type 2 with complication of diabetic retinopathy, present on admission, ongoing -Holding home medications -Low dose correctional insulin protocol initiated -Would recommend diabetic diet, however pt states he would leave AMA if given diabetic diet -General diet ordered for patient Morbid obesity -BMI of 36.7 Tobacco use disorder, present on admission, ongoing -Nicotine patch ordered for patient -Encouraged cessation, pt not interested. Chronic issues Peripheral artery disease Chronic pain COPD PCP: Dr Cosme CODE STATUS: Full code VTE Prophylaxis: Sub-Q Heparin (Unfractionated) Resuscitation Status: CPR: Attempt Resuscitation Time spent 20 minutes Lucy Milton MD Oct 11, 2016 09:18
--- NOTE | 2016-10-11 09:18 | NUR ---
JET signed. Mere Hull GAMEMASTER
[2016-10-11 09:25] LABS: BASOPHILS % (AUTO) 0.2 % (0-3); EOSINOPHILS % (AUTO) 5.2 % (0-5); MONOCYTES % (AUTO) 10.3 % (4-12); Mean Corpuscular Hemoglobin 24.2 pg (27.0-35.0); Mean Corpuscular Volume 83.8 fL (81-100); NEUTROPHILS % (AUTO) 51.9 % (40-74); Platelet Count 319 bil/L (150-400)
[2016-10-11] MEDS ORDERED: Vancomycin Inj 1,000 MG in IV Premix 1 EACH IV ONE (11:30)
[2016-10-11] MEDS: Ondansetron 2 mg/mL 2 mL Inj IVPUSH PRN (13:46)
[2016-10-11 16:00] VITALS: BP 154/86; PULSE 83; RESP 18; O2SAT 99
--- NOTE | 2016-10-11 18:41 | NUR ---
Wound Vac Off at Start of Shift Wound vac found to be off/unplugged this shift. Battery had as a result. Pt c/o increasing pain. Started wound vac again at wound care settings, 50mL fluid drained from wound shortly thereafter. Pt pain decreased from 8/10 to 6/10 post wound vac activation and pain medication. WCTM for increased pain and mechanical failure.
[2016-10-11 20:11] VITALS: BP 165/84; PULSE 76; RESP 18; O2SAT 97
--- NOTE | 2016-10-11 21:59 | NUR ---
Medication refusal Medications crushed as pt requested, however, they were mixed together and pt refused to take them as presented. Discussed and encouraged pt to accept, pt refused completely to take blood pressure meds and methadone. Will monitor as treat as needed. Addendum: 10/11/16 at 2306 by GRAHAM FANG RN Alternate RN able to administer blood pressure meds.
[2016-10-11] MEDS: Insulin GLARgine 100 Unit/mL Syringe SUBQ SCH (23:04)
[2016-10-12] MEDS: Piperacillin-Tazo 3.375 Gm Inj 3.375 GM in Dextrose 5% Minibag Plus 50 ML IV SCH ×3 (00:43→17:21)
[2016-10-12] MEDS: 0.9% Sodium Chloride 1,000 ML IV SCH ×3 (02:31→22:56)
[2016-10-12] MEDS: HYDROmorphone 0.5 mg/0.5 mL iSecure Syringe IVPUSH PRN ×7 (02:38→23:26)
[2016-10-12] MEDS: Sodium Chloride LOK Flush 10 mL Syringe IVFLUSH PRN (02:38)
--- NOTE | 2016-10-12 04:53 | NUR ---
Pain/wound vac P: Wound vac in place to Left buttock ulcer, Pt c/o px at 03/25 I: Reinforced dressing to prevent leak due to friction from movement, draining serous fluid, running at standard setting-150, receiving PRN IV dilaudid every 3hrs E: Wound vac with no leaks, Px controlled with IV dilaudid 02/22-
[2016-10-12] MEDS: Sucralfate 1,000 mg Tablet PO SCH ×4 (05:54→22:34)
[2016-10-12 06:26] VITALS: BP 183/84; PULSE 71; RESP 18; O2SAT 95
[2016-10-12 06:38] LABS: Mean Corpuscular Hemoglobin 24.1 pg (27.0-35.0); Mean Corpuscular Volume 83.4 fL (81-100); Platelet Count 282 bil/L (150-400)
[2016-10-12 07:20] LABS: BASOPHILS % (AUTO) 0 % (0-3); EOSINOPHILS % (AUTO) 5 % (0-5); MONOCYTES % (AUTO) 11 % (4-12); NEUTROPHILS % (AUTO) 56 % (40-74)
[2016-10-12] MEDS: Insulin LISPRO 300 Unit/3 mL Inj SUBQ SCH ×4 (08:00→22:00)
[2016-10-12] MEDS: Vancomycin Dose per Pharmacist XX SCH (08:30)
--- NOTE | 2016-10-12 08:41 | NUR ---
Noncompliant Was informed by primary RN Isa that pt is quite non compliant; pt refuses to let nurse put O2 on him even though his sats are 76%; Not allowing staff to turn him from side to side to avoid pressure sores; pt demanding that each of his pills be crushed into a fine powder individually before being given 1 at a time; Pts blood sugars have been ranging 150-250s throughout stay and has signed the diet against medical advice. Pt not participating in care. Pacheco Soto aware of situation. in room to speak with pt regarding consequences of not participating in care. care conts.
--- NOTE | 2016-10-12 10:24 | PCM.PNMED ---
Subjective Date of Service Oct 12, 2016 Subjective Patient refusing to be turned. Refusing to have his oxygen saturation monitored and he was low this morning. He only wants to eat. He also is quite demanding as to nurses to process his food given things. Gets angry when things do not go his way. Exam Vital Signs Vital Sign - Last Date Time Temp Pulse Resp B/P Pulse Ox O2 Delivery O2 Flow Rate FiO2 10/12/16 06:26 36.7 71 18 183/84 95 Room Air 10/09/16 20:20 3.00 Intake and Output 10/11/16 10/11/16 10/12/16 Cumulative From/Thru 14:59 22:59 06:59 10/07/16 16:51 - 10/12/16 06:54 Intake Total 1716 ml 4585 ml 77125 ml Output Total 1600 ml 1550 ml 04734 ml Balance 116 ml 3035 ml 5190 ml Intake Oral 1716 ml 600 ml 6201 ml IV Total 3985 ml 55000 ml Output Urine Total 1600 ml 1400 ml 85179 ml Drainage Total 150 ml 150 ml Estimated Blood Loss 100 ml # Voids 2 # Bowel Movements 0 Exam Constitutional: "Morbidly obese male who appears slightly disheveled Head: Atraumatic Chest: Clear to auscultation decreased breath sounds at his bases Cor: Regular rate and rhythm S1-S2 Abdomen: Soft nontender bowel sounds present Neuro: Alert and oriented 3, motor strength is intact bilaterally Lab and Diagnostics Result Diagram: 10/12/1661910/12/16619 Microbiology Name: TONIO SHABAZZ Age/Sex: 55/M Attend Dr: German Soto MD Acct: [id number] Unit: [id number] Status: REG [facility] Location: [facility] Re10/01/16 Disch: Specimen: [id number] Collected: 10/01/16 Status: JANELLE Req#: [id number] Received: 10/01/16 Source: HIP Sp Desc : LEFT Subm Dr: Keith Cervantes MD Ordered: CS & ANAC & GS Comments: Collected by Nurse/Unit? Y/N Y Comment: L HIP WOUND Procedure Result Verified Site Microbiology JAZZY GS (GRAM STAIN) Final 10/01/16 GRAM STAIN RESULT MANY POLYS MODERATE GRAM POS COCCI MANY GRAM VARIABLE RODS JAZZY CULT AEROBIC Final 10/07/16 MODERATE NORMAL SHAYLA PRESENT ANAEROBIC CULTURE Final 10/07/16 No anaerobes isolated X-Rays, CTs and MRIs PROCEDURE: X-RAY LEFT HIP COMPLETE, MINIMUM TWO VIEWS ([id number]) INDICATIONS: left hip/buttock wound TECHNIQUE: 2 views of the hip were acquired. COMPARISON: None. FINDINGS: Bones: Bones are osteopenic. Suspect fracture in the left femoral neck. There is severe osteopenia.. No suspicious bony lesions. The visualized pelvic ring appears intact. Soft tissues: No suspicious soft tissue calcifications or masses. Subcutaneous gas in the left buttock. IMPRESSION: 1. Suspect left femoral neck fracture. 2. Subcutaneous gas in the left buttock. Dictated by: Juvencio Lopez M.D. on 10/07/2016 at 20:54 Approved by: Juvencio Lopez M.D. on 10/07/2016 at 20:56 Assessment & Plan 55-year-old obese patient with history of smoking, PAD, insulin-dependent diabetes mellitus, diabetic retinopathy presented due to his left hip ulcer. Infected unstageable left hip pressure ulcer, present on admission, ongoing -In ER, xray of hip demonstrated left femoral neck fracture and subcutaneous gas in left buttock -Pt received dose of Zosyn in ER. -Leukocytosis 16.4,neutrophils 70.8 -Lactic acid 1.1, no need to trend -Procalcitonin 0.17 -Blood cultures pending and so far negative -Treating pt with Vancomycin and Zosyn -Dilaudid available for pain -Went to the OR 2 days with general surgery for ulcer debridement - Orthopedics consult saw patient Regarding possible hip fracture and felt that no further interventions are warranted at this time. Please see consult for details. -Day # 4 of iv vancomycin and zosyn -Waiting further recommendations from surgery, otherwise consider home on IV antibiotics or SNIF placement for IV antibiotics or possible transition to orals Behavioral issues with noncompliance and history of depression We will obtain palliative care and psychiatry consultations Self and the nurse discussed with patient today the importance of him being compliant what what we are requesting such as rotation to avoid decubitus ulcers. Also advise compliance with other measures in order to give standard of medical care. We also did discuss option of becoming comfort care only. We will try to put together a family meeting with patient and staff tomorrow possibly after palliative care and psychiatry consultations. Insulin-dependent diabetes mellitus type 2 with complication of diabetic retinopathy, present on admission, ongoing -Holding home medications -Low dose correctional insulin protocol initiated -Would recommend diabetic diet, however pt states he would leave AMA if given diabetic diet -General diet ordered for patient Morbid obesity -BMI of 36.7 Tobacco use disorder, present on admission, ongoing -Nicotine patch ordered for patient -Encouraged cessation, pt not interested. Chronic issues Peripheral artery disease Chronic pain COPD PCP: Dr Cosme CODE STATUS: Full code VTE Prophylaxis: Sub-Q Heparin (Unfractionated) Resuscitation Status: CPR: Attempt Resuscitation Time spent 30 minutes Lucy Milton MD Oct 12, 2016 10:24
--- NOTE | 2016-10-12 10:50 | NUR ---
Wound Care Pt seen for dressing change, medical policy specialist present. Wound (pressure ulcers stage 4) dimensions are unchanged from initial surgery. Left great trochanter 11 cm L x 11 cm W x 5 cm D. Left Ischium 4 cm L x 3.5 cm W x 3 cm D (areas of skin breakdown along edges of this wound). 350 ML of serosanguinous drainage in canister. Wound base of great trochanter wound clean with combination of granulation tissue and subcutaneous tissue and bone. Wound base of ischial ulcer with some slough (< 20%) and granulation tissue. NPWT reapplied with black foam, 150 mmHg and continuous therapy, an excellent seal was attained. Of note patient no longer on clinitron bed as recommended, discussed with patient the benefit of frequent repositioning but he does not seem to completely accept the rational. Next NPWT dressing change on Wed.
[2016-10-12] MEDS ORDERED: Vancomycin Serum Level XX ONE (11:00)
--- NOTE | 2016-10-12 11:02 | PCM.PNSURG ---
Subjective Date of Service: Oct 12, 2016 Visit Information: Reason for Visit Infected Pressure Ulcer Surgery/Surgery Date I&D L BUTTOCK WOUND 10/09/16 Post-Op Day # Date of Admission: Oct 07, 2016 at 19:27 Hospital Day # Subjective: Dressing change was observed with Morris from wound care. The patient continues to be intermittently uncooperative with nursing staff refusing turns and unable to tolerate the clinitron. 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 Otherwise he continues to complain about pain in his ulcers, functional bowel incontinence, and poor food choices. 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), in moderate acute distress secondary to decubitus ulcer pain Neck: Obese large neck, supple full range of motion HEENT: Visually impaired, wearing sunglasses Extr: Large approximately 11cm x 11cm x 5cm stage 4 decubitus ulcer on left hip with some granulation tissue in the deep wound bed without evidence of infection or necrosis, additional 3 cm x 3 cm x 2 cm ulcer on ischial surface with some necrotic tissue and associated erythema, diffuse chronic venous stasis changes BL LE Psych: Patient with meandering speech and inconsistent details about past history, admits to frustration with course of care and poor insight into illness. Vital Sign- Last 8 Hours Date Time Temp Pulse Resp B/P Pulse Ox O2 Delivery O2 Flow Rate FiO2 10/12/16 06:26 36.7 71 18 183/84 95 Room Air Intake and Output- Last 8 Hour 10/12/16 Cumulative From/Thru 07:00 10/07/16 16:51 - 10/12/16 06:54 Intake Total 4585 ml 09389 ml Output Total 1550 ml 08779 ml Balance 3035 ml 5190 ml Intake Oral 600 ml 6201 ml IV Total 3985 ml 90071 ml Output Urine Total 1400 ml 92957 ml Drainage Total 150 ml 150 ml Estimated Blood Loss 100 ml # Voids 2 # Bowel Movements 0 Result Diagram: 10/12/16 0620 10/12/16 0620 Assessment & Plan Impression This patient has 2 large stage 4 pressure ulcers currently treated with wound vac. He is refusing turns and was unable to tolerate the clinitron bed, both of which greatly complicate improvement of his wounds. Patient was being interviewed by palliative care, and may benefit from this consult given the nature of his wounds and the doubtful prospect of any kind of resolution in the setting of poor compliance with care. Problems: Plan -Continue wound vac with dressing change in 72 hours -Continue to encourage turns as patient is able and willing -Agree with palliative consult -We will continue to follow this patient in conjunction with wound care and will be available should our assistance be required. VTE Prophylaxis: Sub-Q Heparin (Unfractionated) Resuscitation Status: CPR: Attempt Resuscitation Attending Statement: I agree with Dr. Blake's assessment and plan. Steven Blake DO Oct 12, 2016 11:02 King Fontanez MD Nov 04, 2016 11:07
--- NOTE | 2016-10-12 12:46 | PCM.PHAPRO ---
Progress Date of Service: Oct 12, 2016 Vancomycin dosing per pharmacy Indication: hip ulcer/necrosis Goal vanco trough: 15-20 Labs: SCr: 0.96 Trough (10/12/16 @1130): 12.3 Vancomycin trough is subtherapeutic -- will increase daily vancomycin dose. Give vancomycin 1250 mg IV Q24H at 1300. Next trough has been ordered for 10/14/16 at 1230. Pharmacy to continue to monitor and dose vancomycin. Thank you, Obie Howard Pharmacist Obie Howard Oct 12, 2016 12:46
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
--- NOTE | 2016-10-12 12:59 | NUR ---
Palliative Care Palliative Care received order from Dr Milton 10/12/16 to assist with goals of care/pain. Patient is a 55 year old obese man with history of smoking, PAD, insulin-dependent diabetes mellitus and diabetic retinopathy. He was admitted 10/07/16 for care of left hip ulcer. Patient lives with his in [place]. Kasia Sandoval () [phone] Carol Haque (friend) [phone] Palliative Care to follow. Nanette Ortez
[2016-10-12 13:00] VITALS: BP 192/94; PULSE 75; RESP 16; O2SAT 97
[2016-10-12] MEDS: Vancomycin Inj 1,250 MG in 0.9% Sodium Chloride 250 ML IV SCH (13:36)
--- NOTE | 2016-10-12 15:14 | PATH ---
SURGICAL PATHOLOGY Attending Physician:King Fontanez M.D. CASE STATUS: Signed Out PATIENT NAME: TONIO SHABAZZ PID: [id number] : 1960 DATE COLLECTED:10/08/2016 00:00 SPECIMEN: Skin, Debridement CLINICAL HISTORY: LEFT BUTTOCK AND SACRAL ULCER 1). DECUBITUS ULCER FINAL DIAGNOSIS: 1.DECUBITOUS ULCER: NECROTIC SKIN AND SUBCUTANEOUS TISSUE. NO EVIDENCE OF MALIGNANCY. ICD10 CODE L89.32 GROSS DESCRIPTION: The specimen is received in formalin, labeled with the patient's name, sublabeled as decubitus ulcer and consists of an unoriented piece of skin with subcutaneous tissue (10.1 x 7.5 x up to 4.3 cm). The skin is brown-yellow with a central black firm area (5.7 x 5.5 x 0.6 cm). The subcutaneous tissue is fatty, yoon-yellow, focally bright pink and apparently necrotic. Ink code: black-resection margin. Section code: (A-B, C-D) the skin or subcutaneous tissue, 2 bisected full thickness sections. 10/10/16 MICRO DESCRIPTION: See diagnosis. ICD-9 CODES: CPT CODES: 1: 91717 Electronically Signed Out Karen Armstrong MD [facility] [address], [place] [address] Technical component performed at [facility], [address] [place] [address] Ave[address], [place], [address]
--- NOTE | 2016-10-12 16:08 | NUR ---
Choice List provided. Mere Hull MSW
--- NOTE | 2016-10-12 16:24 | NUR ---
Social Work- Readiness for Discharge Data: EMR reviewed. Pt is on day 5 of hospitalization for infected pressure ulcer per H&P. Psychiatry to assess patient. Wound care continues to follow patient in hospital.SW met with patient at bedside today to discuss HH RN PT OT vs. SNF services. Pt not agreeable to SNF, wants to go home. Pt provided HH choice list. Requested SW to call his regarding this matter. SW spoke with Kasia Sandoval [phone] and caregiver Carol regarding HH RN PT OT choice. Kwesi has experience with [facility] prior to admission, requested referral to be made there as well as [facility] [phone]. SW attempted to make referral to [facility] [phone], but [facility] declined the referral. SW made referral to [facility], but they do not have a contract. SW made referral to [facility] [phone] for HH RN PT OT, faxed face sheet and H&P. Pts informed SW that pt has [facility] caregiving for 115 hours per month, being increased to 136. [facility] porter sample case is Adrian Gil, updated clinicals faxed. SW will continue to follow for needs. Assessment: Pt who would benefit from HH RN PT OT. Plan: Pt to discharge home with family and SHIR[facility]. Referral made to [facility] for HH RN PT OT. Wound care will continue to follow patient in hospital. SW continue to follow. REN Fernandez
[2016-10-12 19:52] VITALS: BP 165/76; PULSE 81; RESP 20; O2SAT 97
--- NOTE | 2016-10-12 19:57 | NUR ---
Activity Pt was desating this AM in high 70's, but declined to have O2 put on even despite education. Pt has been refusing turns, but was agreeable to being turned twice during shift and when asked about turning again stated "I already did." Pt noncompliant with meals ordering chocolate milk and ice cream BG during shift ranged from 120-171. Pt has also not had a BM since STIFF NECK LOADER, but declined medications stating "well I didn't have anything to eat for days, so there's nothing in there." Pt took pills individually crushed in pudding. Care continues.
[2016-10-12] MEDS: Insulin GLARgine 100 Unit/mL Syringe SUBQ SCH (22:54)
[2016-10-13] MEDS: Piperacillin-Tazo 3.375 Gm Inj 3.375 GM in Dextrose 5% Minibag Plus 50 ML IV SCH ×3 (01:35→17:29)
[2016-10-13] MEDS: HYDROmorphone 0.5 mg/0.5 mL iSecure Syringe IVPUSH PRN ×5 (01:50→18:06)
[2016-10-13] MEDS: Sodium Chloride LOK Flush 10 mL Syringe IVFLUSH PRN (01:50)
[2016-10-13 04:37] VITALS: BP 179/76; PULSE 74; RESP 18; O2SAT 94
[2016-10-13 05:12] LABS: BASOPHILS % (AUTO) 0.2 % (0-3); EOSINOPHILS % (AUTO) 5.7 % (0-5); MONOCYTES % (AUTO) 10.5 % (4-12); Mean Corpuscular Hemoglobin 24.5 pg (27.0-35.0); Mean Corpuscular Volume 83.9 fL (81-100); NEUTROPHILS % (AUTO) 53.4 % (40-74); Platelet Count 285 bil/L (150-400)
[2016-10-13] MEDS: Sucralfate 1,000 mg Tablet PO SCH ×4 (06:14→23:17)
--- NOTE | 2016-10-13 06:17 | NUR ---
Pain/Wound vac Pt continues with pain 03/25, PRN dilaudid being given every 2-3 hrs. Pt able to have a very large BM this shift and it went into the wound vac dressing, compromising it. Performed a wet to dry dressing and wound care to be notified this AM.
[2016-10-13 07:54] VITALS: BP 166/84; PULSE 64; RESP 18; O2SAT 92
[2016-10-13] MEDS: Vancomycin Dose per Pharmacist XX SCH (08:30)
[2016-10-13] MEDS: Insulin LISPRO 300 Unit/3 mL Inj SUBQ SCH ×4 (08:33→22:00)
--- NOTE | 2016-10-13 10:53 | PCM.PNSURG ---
Subjective Date of Service: Oct 13, 2016 Visit Information: Reason for Visit Infected Pressure Ulcer Surgery/Surgery Date I&D L BUTTOCK WOUND 10/09/16 Post-Op Day #5/4 Date of Admission: Oct 07, 2016 at 19:27 Hospital Day # Subjective: Wound VAC was removed early this morning as the patient had a bowel movement with stool contamination of the wounds. Palliative care consultation was reviewed. Pain Management: PO, IV Push Postop Activity: Other (bed rest) Objective Vital Sign- Last 8 Hours Date Time Temp Pulse Resp B/P Pulse Ox O2 Delivery O2 Flow Rate FiO2 10/13/16 07:54 36.6 64 18 166/84 92 Room Air 10/13/16 04:37 37.0 74 18 179/76 94 Room Air Intake and Output- Last 8 Hour 10/13/16 Cumulative From/Thru 06:59 10/07/16 16:51 - 10/13/16 06:21 Intake Total 4587 ml 30347 ml Output Total 1000 ml 14229 ml Balance 3587 ml 9722 ml Intake Oral 3636 ml 83774 ml IV Total 951 ml 51863 ml Output Urine Total 1000 ml 66931 ml Drainage Total 150 ml Estimated Blood Loss 100 ml # Voids 2 # Bowel Movements 0 General: Alert, Cooperative, No Acute Distress Lungs: Clear to Auscultation Heart: Regular Rate/Rhythm SURGICAL WOUND : Wound General Appearence: Wound under dressing (both wounds are currently under dressings) Neuro: Normal Speech Result Diagram: 10/13/16 0500 10/13/16 0500 Assessment & Plan Impression Primary diagnoses: 1. Left greater trochanter and left ischial decubitus ulcers. 2. Anemia of chronic disease Other diagnoses: 1. Diabetes mellitus type II insulin-dependent 2. Peripheral artery occlusive disease 3. Morbid obesity, BMI 36.7 4. Dementia 5. Posttraumatic stress disorder 6. Chronic pain syndrome 7. Migraine 8. Hypertension 9. TIA 10. COPD 11. Degenerative joint disease 12. Daily cigarette smoker Problems: Plan 1. Wound VAC will be reapplied today by the wound care nurse. 2. half-way transfer is being arranged by the hospitalist. Pain Management: Oral methadone Intermittent IV Dilaudid Resuscitation Status: CPR: Attempt Resuscitation Antwan Burnette PA-C Oct 13, 2016 10:53
--- NOTE | 2016-10-13 10:53 | PCM.PALLBR ---
Palliative Care Recommendation 55-year-old male with type II diabetes mellitus, severe peripheral vascular disease, status post prior bilateral lower extremity amputations, COPD, etc. admitted now with unstageable, large decubiti ulcers. General surgery is following and managing his wound care. Palliative medicine consulted to assist in determination of goals of care and symptom management. Spoke at length again today by phone with both his Kasia and his caregiver Carol (see below for more details). Summary of palliative recommendations: -Symptom management (Pain/other)- pain control significantly better today. He was perhaps slightly more drowsy than yesterday but no other obvious side effects. Had adjusted dose of his Dilaudid to 1 mg IV Q2 hr prn yesterday. Also encouraged nurses to use this 15-30 minutes prior to dressing changes or movements that predictably trigger his breakthrough pain. Also increased his basal pain medication from chronic methadone 5 mg QID to methadone 10 mg twice daily (at 0630 and 1630) as well as 5 mg twice daily (at 1130 and 2130). I suggested that he consider changing his methadone to BID or TID dosing for convenience, but he really insists on continuing his QID dosing schedule. Will continue to follow his response to these changes and adjust as needed in the coming days. -DPOA/Advanced Directives/POLST- His Kasia is his POA. He remains committed to FULL CODE and ongoing aggressive medical treatment. He says that he and his may reconsider this if it appears that he is not improving, but for the time being he wants to remain very aggressive. He understands that he needs to try to cooperate with nursing staff in turning, dressing changes, using his medications as directed, etc. in order to optimize his chances of getting better. He has occasionally just gotten emotionally overwhelmed with his situation and pain and this has led to his refusing care. Today he expressed willingness to stay in the hospital longer if it would be necessary to optimize his care. -Family/emotional support- excellent support from his at home Patient Goals: 1. Patient and his want to be told the truth about his illness, even if it is unpleasant. 2. Patient and his would like to be told prognosis when it can be predicted , to better guide treatment decisions. Additional Medical Diagnoses with primary management by Hospitalist team include : Infected unstageable left hip pressure ulcer, present on admission, ongoing Behavioral issues with noncompliance and history of depression Insulin-dependent diabetes mellitus type 2 with complication of diabetic retinopathy, present on admission, ongoing Morbid obesity Tobacco use disorder, present on admission, ongoing Peripheral artery disease Chronic pain with narcotic habituation COPD Problems: End of Life Preferences Full code Goals of Care He continues to hope for stabilization and healing Disposition Strongly desires home but not clear whether that will be practical Resuscitation Status Resuscitation Status: CPR: Attempt Resuscitation POLST Updates/Changes Previous POLST?: No . Pain: Moderate (improved) Total time 85 minutes; >50% face to face with patient , providing counselling regarding plans and recommendations, and in care coordination with his medical teams. Of the above total time, 15 minutes spent discussing advanced care issues, potential change in CODE STATUS, etc. Palliative Brief Note Date of Service Oct 13, 2016 . Returned to reevaluate patient. Prior to visiting, reviewed his updated records in the EMR and spoke with his bedside nurse. Nurse reported that he has been more cooperative with care. He had a large explosive BM last evening and disrupted his wound VAC- wound care team has been notified and will come by to replace it later today. When I arrived, he was sitting up in bed eating breakfast. He thinks that the changes and pain medicine helped and he is feeling more comfortable. He says that he and his talked about possible transfer to [place] for longer term care and she was not at all happy about that option (unfortunately, she is at home with a pretty significant illness). He continues to hope for discharge home where his and additional caregiver manage his needs. He also talked about recent care at [facility] and wondered how to go about making a formal complaint. I will contact Risk Management pass along his request. His physical exam was otherwise stable. Addendum: I spoke with his Kasia and his nurse Carol by phone for 45 minutes. Reviewed his status, ongoing treatment, concerns they had regarding home care, the challenges [id number] trying to care for him (including his immobility, incontinence, occasional uncooperativeness, gradually increasing cognitive dysfunction, etc.) Talked about possible option of [facility] placement or other care in a facility if they are unable to manage him at home. Also talked honestly about his longer term prognosis and the increasing probability that these wounds will not heal and will continue to worsen. Steven Gastelum MD Oct 13, 2016 10:53
[2016-10-13] MEDS: 0.9% Sodium Chloride 1,000 ML IV SCH ×2 (11:46→17:06)
--- NOTE | 2016-10-13 12:16 | NUR ---
JET signed. Mere Hull FORMULA CLERK
[2016-10-13 13:28] VITALS: BP 160/88; PULSE 76; RESP 18; O2SAT 96
--- NOTE | 2016-10-13 13:50 | PCM.PNMED ---
Subjective Date of Service Oct 13, 2016 Subjective No new complaints today. Currently eating breakfast. Denies any nausea or vomiting currently Exam Vital Signs Vital Sign - Last Date Time Temp Pulse Resp B/P Pulse Ox O2 Delivery O2 Flow Rate FiO2 10/13/16 13:28 36.9 76 18 160/88 96 Room Air 10/09/16 20:20 3.00 Intake and Output 10/12/16 10/12/16 10/13/16 Cumulative From/Thru 14:59 22:59 06:59 10/07/16 16:51 - 10/13/16 06:21 Intake Total 2745 ml 4587 ml 98248 ml Output Total 1800 ml 1000 ml 48598 ml Balance 945 ml 3587 ml 9722 ml Intake Oral 1362 ml 3636 ml 82972 ml IV Total 1383 ml 951 ml 25707 ml Output Urine Total 1800 ml 1000 ml 45919 ml Drainage Total 150 ml Estimated Blood Loss 100 ml # Voids 2 # Bowel Movements 0 Exam Constitutional: Male in no acute distress Head: Normocephalic atraumatic Chest: Decreased breath sounds at his bases Cor: Regular rate and rhythm S1-S2 Abdomen soft nontender bowel sounds present Neuro: Alert and oriented 3, motor strength intact bilaterally Lab and Diagnostics Laboratory Tests 72 Hours Test 10/10/16 20:25 10/11/16 04:50 10/12/16 06:20 10/12/16 11:30 Random Vancomycin Level 21.2ug/mL Rx 12.3ug/mL Rx White Blood Count 10.0th/mm3 (3.8-10.1) 10.4th/mm3 (3.8-10.1) Red Blood Count 2.97mil/mm3 (4.40-5.80) 3.19mil/mm3 (4.40-5.80) Hemoglobin 7.2g/dL (13.8-17.2) 7.7g/dL (13.8-17.2) Hematocrit 24.9% (41.0-50.0) 26.6% (41.0-50.0) Mean Corpuscular Volume 83.8fL (81-100) 83.4fL (81-100) Mean Corpuscular Hemoglobin 24.2pg (27.0-35.0) 24.1pg (27.0-35.0) Mean Corpuscular Hemoglobin Concent 28.9% (32.0-37.0) 28.9% (32.0-37.0) Red Cell Distribution Width 14.5% (12.3-15.4) 14.5% (12.3-15.4) Platelet Count 319bil/L (150-400) 282bil/L (150-400) Neutrophils (%) (Auto) 51.9% (40-74) 56% (40-74) Lymphocytes (%) (Auto) 31.4% (14-46) 26% (14-46) Monocytes (%) (Auto) 10.3% (4-12) 11% (4-12) Eosinophils (%) (Auto) 5.2% (0-5) 5% (0-5) Basophils (%) (Auto) 0.2% (0-3) 0% (0-3) Sodium Level 141mEq/L (134-144) 142mEq/L (134-144) Potassium Level 3.8mEq/L (3.5-5.2) 4.1mEq/L (3.5-5.2) Chloride Level 103mEq/L (97-108) 106mEq/L (97-108) Carbon Dioxide Level 29mmol/L (18-29) 27mmol/L (18-29) Blood Urea Nitrogen 7mg/dL (6-24) 8mg/dL (6-24) Creatinine 0.83mg/dL (0.76-1.27) 0.96mg/dL (0.76-1.27) Estimat Glomerular Filtration Rate 102mL/min (>59) 86mL/min (>59) Glucose Level 137mg/dL (60-99) 135mg/dL (60-99) Calcium Level 7.2mg/dL (8.5-10.1) 7.0mg/dL (8.5-10.1) Metamyelocytes % 1% (0-0) Myelocytes % 1% (0-0) Total Bilirubin 0.2mg/dL (0.0-1.2) Aspartate Amino Transf (AST/SGOT) 7U/L (0-50) Alanine Aminotransferase (ALT/SGPT) 6U/L (0-44) Alkaline Phosphatase 101U/L (25-150) Total Protein 4.9g/dL (6.4-8.4) Albumin 1.6g/dL (3.4-5.0) Test 10/13/16 05:00 White Blood Count 12.2th/mm3 (3.8-10.1) Red Blood Count 2.86mil/mm3 (4.40-5.80) Hemoglobin 7.0g/dL (13.8-17.2) Hematocrit 24.0% (41.0-50.0) Mean Corpuscular Volume 83.9fL (81-100) Mean Corpuscular Hemoglobin 24.5pg (27.0-35.0) Mean Corpuscular Hemoglobin Concent 29.2% (32.0-37.0) Red Cell Distribution Width 14.5% (12.3-15.4) Platelet Count 285bil/L (150-400) Neutrophils (%) (Auto) 53.4% (40-74) Lymphocytes (%) (Auto) 28.1% (14-46) Monocytes (%) (Auto) 10.5% (4-12) Eosinophils (%) (Auto) 5.7% (0-5) Basophils (%) (Auto) 0.2% (0-3) Sodium Level 139mEq/L (134-144) Potassium Level 3.9mEq/L (3.5-5.2) Chloride Level 104mEq/L (97-108) Carbon Dioxide Level 28mmol/L (18-29) Blood Urea Nitrogen 10mg/dL (6-24) Creatinine 1.07mg/dL (0.76-1.27) Estimat Glomerular Filtration Rate 76mL/min (>59) Glucose Level 79mg/dL (60-99) Calcium Level 7.2mg/dL (8.5-10.1) Total Bilirubin 0.2mg/dL (0.0-1.2) Aspartate Amino Transf (AST/SGOT) 9U/L (0-50) Alanine Aminotransferase (ALT/SGPT) 7U/L (0-44) Alkaline Phosphatase 90U/L (25-150) Total Protein 5.2g/dL (6.4-8.4) Albumin 1.8g/dL (3.4-5.0) Result Diagram: 10/13/16 0500 10/13/16 050 Microbiology Name: TONIO SHABAZZ Age/Sex: 55/M Attend Dr: German Soto MD Acct: [id number] Unit: [id number] Status: REG R Location: [facility] Re10/01/16 Disch: Specimen: [id number] Collected: 10/01/16 Status: COMP Req#: [id number] Received: 10/01/16 Source: HIP Sp Desc : LEFT Subm Dr: Keith Cervantes MD Ordered: CS & ANAC & GS Comments: Collected by Nurse/Unit? Y/N Y Comment: L HIP WOUND Procedure Result Verified Site Microbiology JAZZY GS (GRAM STAIN) Final 10/01/16-2246 GRAM STAIN RESULT MANY POLYS MODERATE GRAM POS COCCI MANY GRAM VARIABLE RODS JAZZY CULT AEROBIC Final 10/07/16-1027 MODERATE NORMAL SHAYLA PRESENT ANAEROBIC CULTURE Final 10/07/16-1027 No anaerobes isolated X-Rays, CTs and MRIs PROCEDURE: X-RAY LEFT HIP COMPLETE, MINIMUM TWO VIEWS ([id number]) INDICATIONS: left hip/buttock wound TECHNIQUE: 2 views of the hip were acquired. COMPARISON: None. FINDINGS: Bones: Bones are osteopenic. Suspect fracture in the left femoral neck. There is severe osteopenia.. No suspicious bony lesions. The visualized pelvic ring appears intact. Soft tissues: No suspicious soft tissue calcifications or masses. Subcutaneous gas in the left buttock. IMPRESSION: 1. Suspect left femoral neck fracture. 2. Subcutaneous gas in the left buttock. Dictated by: Juvencio Lopez M.D. on 10/07/2016 at 20:54 Approved by: Juvencio Lopez M.D. on 10/07/2016 at 20:56 Assessment & Plan 55-year-old obese patient with history of smoking, PAD, insulin-dependent diabetes mellitus, diabetic retinopathy presented due to his left hip ulcer. Infected unstageable left hip pressure ulcer, present on admission, ongoing -In ER, xray of hip demonstrated left femoral neck fracture and subcutaneous gas in left buttock -Pt received dose of Zosyn in ER. -Leukocytosis 16.4,neutrophils 70.8 -Lactic acid 1.1, no need to trend -Procalcitonin 0.17 -Blood cultures pending and so far negative -Treating pt with Vancomycin and Zosyn -Dilaudid available for pain -Went to the OR 2 days with general surgery for ulcer debridement - Orthopedics consult saw patient Regarding possible hip fracture and felt that no further interventions are warranted at this time. Please see consult for details. -Day # 6 of iv vancomycin and zosyn. Patient also has wound VAC in area and followed by general surgery and wound care -Waiting further recommendations from surgery, otherwise consider home on IV antibiotics or SNIF placement for IV antibiotics or possible transition to orals - To discuss case with surgery today who felt there was no further interventions that they will be doing here - We will try to arrange for placement for continuing subacute care. We will investigate possible discharge to [place] for continuing wound care and IV antibiotics. Hypoalbuminemia, chronic, present on admission Will check urinalysis to see if the spelling of protein Also the total protein to albumin ratio is higher so will check SPEP. We will also get nutrition consult Acute on chronic anemia, present on admission Recommended transfusion of 1 unit PRBCs however patient refuses Behavioral issues with noncompliance and history of depression Appreciate palliative care consultation Did discuss with psychiatry today and will consult on patient sometime today. Appreciate psychiatry input Self and the nurse discussed with patient today the importance of him being compliant what what we are requesting such as rotation to avoid decubitus ulcers. Also advise compliance with other measures in order to give standard of medical care. We also did discuss option of becoming comfort care only. We will try to put together a family meeting with patient and staff today or tomorrow Insulin-dependent diabetes mellitus type 2 with complication of diabetic retinopathy, present on admission, ongoing -Holding home medications -Low dose correctional insulin protocol initiated -Would recommend diabetic diet, however pt states he would leave AMA if given diabetic diet -General diet ordered for patient Morbid obesity -BMI of 36.7 Tobacco use disorder, present on admission, ongoing -Nicotine patch ordered for patient -Encouraged cessation, pt not interested. Chronic issues Peripheral artery disease Chronic pain COPD PCP: Dr Cosme CODE STATUS: Full code Pain Evaluation: Adequate Pain Control Resuscitation Status: CPR: Attempt Resuscitation Time spent 40 minutes Lucy Milton MD Oct 13, 2016 13:50
--- NOTE | 2016-10-13 14:33 | NUR ---
Non-compliant Diabetic P: patient non-compliant with diabetic diet I: Patient teaching on importance of diet. Patient previously signed waver. Blood sugars monitored AC. Lispro sliding scale. E: Patient BS 168 AC breakfast and 144 AC lunch. One unit correctional dose given before each meal.
--- NOTE | 2016-10-13 14:49 | NUR ---
Social Work- Readiness for Discharge Data: EMR reviewed. Pt is on day 6 of hospitalization for infected pressure ulcer per H&P. Psychiatry to assess patient. Wound care continues to follow patient in hospital and he continues with wound vac. Discussed in morning rounds the possibility of [facility] for pt at discharge. SW spoke with RN and MD who feels like family meeting would be beneficial. SW to arrange. SW placed a call to pt's Kasia and caregiver Carol to discuss discharge planning. Pt's unable to come into hospital today due to illness, but would be able to come tomorrow at 11 for family meeting. Pt's brought up discussion of [facility] with SW. has concerns about pt going to [facility] due to bad experience at facilities prior. SW explained to that [facility] is a hospital, not a SNF. Pt's willing to discuss further with team during family meeting, but does not want SW to make referral today. SW explained that HH had to be set up through [facility] due to insurance barriers. Pt's agreeable. SW explained to that due to the fact that pt did not arrive by ambulance to the hospital, pt will not qualify for [facility] transportation home. Pt's agreeable and states she will be able to provide transport at discharge. If pt does return home, wound vac will need to be arranged if needed through wound care. Referral sent to [facility] for RN PT OT. SW updated RN, UR RN, regarding family meeting 10/14 at 11 am. F2F in folder. SW will continue to follow. Assessment: Pt who would benefit from RN PT OT. Plan: Pt to discharge home with family and [facility] vs [facility]. Family/team meeting scheduled for 10/14 at 11 am with pt and . Referral made to [facility] for HH RN PT OT. Wound care will continue to follow patient in hospital. SW continue to follow. REN Fernandez
[2016-10-13] MEDS: Vancomycin Inj 1,250 MG in 0.9% Sodium Chloride 250 ML IV SCH (15:09)
--- NOTE | 2016-10-13 16:23 | NUR ---
NUTRITION FOLLOW-UP: ASSESS: 55 YO male admitted with infected PU s/p debridement on 10/08 and 10/09. Pt continues to be non-compliant with DM diet, refusing to eat anything but general diet with po intake avg of 55% x 3 days. Pt continues to receive Indra BID. PMHX:DM, dementia, PTSD, HTN, COPD, TIA, bilateral AKA LABS: Reviewed. Alb 1.8. MEDS: Reviewed. Insulin. GI: 0 BM recorded yet SKIN: Stg 4 PU on hip and stg 4 PU on buttock per WC WT: 122.74 kg, BMI 36.7 kg/m2, IBW 80.9 kg DIET: Mechanical soft, thin liquids. Po intake varies from 0-100% with po intake avg. of 55% x 3 days. EST. NEEDS: wounds, bilateral AKA (-32%) Kcals: 3819-6570 kcal/day (25-30 kcal/kg) Pro: 85-110g/day (1.5-2.0g/kg IBW NUTRITION DIAGNOSIS: 1) Increased nutrient needs related to healing as evidence by pt with multiple stg 4 PU - PERSISTS. NUTRITION INTERVENTION: 1) Continue current diet and Indra BID at this time. 2.) Add ensure BID at 05/17 to encourage increased/adequate po intake. MONITOR / EVAL: PO intake, labs, wounds, nutrition status. Continue to monitor per high nutrition risk guidelines
--- NOTE | 2016-10-13 16:40 | CONS ---
[address] [address] CONSULTATION REPORT PATIENT: TONIO SHABAZZ : 1960 MR#: [id number] ADMIT: 10/07/2016 JOB ID: [id number] DATE OF SERVICE: 10/13/2016 PSYCHIATRIC CONSULTATION: IDENTIFICATION: The patient is a 55-year-old white male currently living with his . REASON FOR ADMISSION: Client went to the ED with a left hip ulcer. Presented with fever, chills and nausea. HISTORY OF PRESENT ILLNESS: Today I was asked to consult the patient for assessment of his psychiatric functioning as he was having a difficult time interacting with staff presenting as very belligerent. He would refuse an ADA diet and threatened to leave against medical advice if not given the food that he wanted. He is tending to be very difficult when requests are made for wound care. There was a concern that he may have psychiatric disorder that was driving some of these behaviors. I have met the patient for a 60 minutes evaluation and reviewed course and records kept by [facility]. Client's main issue is difficulty adjusting after recent bilateral amputations in July. 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 He tends to project blame and has a difficult time working in concert with health caregivers. Client consistently denied psychiatric review of systems for depression, adam, psychosis, trauma or substance abuse. He repeatedly stated he did not want psychiatric intervention or care. He is a devout [employer] and feels that his spiritual needs are cared for and in terms of psychology he states he adele best when he takes things "one day at a time." He was able to identify the risks to his health of not following a diabetic guidelines for self care. He knows the risks and is choosing to enjoy himself rather than restrict himself. PAST HISTORY MEDICATIONS: MEDICATIONS: 1. Piperacillin. 2. Vancomycin. 3. Bentyl. 4. Insulin Lantus. 5. Lisinopril. 6. Methadone 50 mg b.i.d. 7. Metoprolol 50 t.i.d. ILLNESSES: 1. Left hip pressure ulcer. 2. Insulin-dependent diabetes, type 2. 3. Morbid obesity. 4. Peripheral artery disease. 5. Chronic pain. 6. COPD. FAMILY MEDICAL HISTORY: Noncontributory. PAST PSYCHIATRIC HISTORY: Client denies. PSYCHOSOCIAL HISTORY: Client states he was born in [place], [place]. He stated that [place] was [place]. He denies history of trauma. He states he is not a smoker and does not use illegal drugs. He denied suicidal ideation or past suicide attempts. Client is currently . His lutheran is devout Samaritan tending towards [place]. LEGAL HISTORY: Patient denies. PHYSICAL EXAMINATION: Vital signs: Blood pressure 160/88, pulse of 76, respiration rate 18, temp afebrile. MENTAL STATUS EXAMINATION: Client was a morbidly obese male lying in bed without a shirt on. He had dark glasses and poor eye contact. His behavior was lethargic and withdrawn, but his attitude was cooperative and pleasant. His speech was normal rhythm. His mood was euthymic. Affect was congruent with no lability and normal intensity. Thought process was logical, goal oriented. Client was able to relate a coherent history. He was able to appreciate simple and complex abstractions. No signs of psychosis. Thought content: No signs of delusions. Client denied suicidal ideation. He denied auditory hallucinations. The client is beginning to plan for how he is going to take care of himself. He states he does not want to go to a custodial home because of bad experiences he reports in the past. He reports his coping strategies is to "take it one day at that time." Client alert and oriented to person, place and date. Immediate, short, and long-term memory intact. Attention and concentration normal. Insight and judgment mildly impaired due to the stress of being physically ill. He did have the capacity to make medical decisions and appeared to understand the relative risk versus the relative benefit. Impulse control highly contained. Reality testing is intact. Competence to handle current stressors is currently being overwhelmed by physical illness. IMPRESSION: The patient is a 55-year-old white male with severe obesity and insulin-dependent diabetes for which he makes little to no effort to treat with his diet. He consistently denied psychiatric review of systems for major disorders and declined offers for medications or therapy. Although he has poor self-care, he knows the risks that he is taking and knows what happens if he does not take care of the diabetes. When he does get complications, he has a character structure which allows him to project blame and minimize responsibility for self care. 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 AXIS II Narcissistic traits. AXIS III 1. Insulin-dependent diabetes. 2. Bilateral amputation. 3. Pressure abscess left hip. 4. Diabetic retinopathy. AXIS IV Severe. AXIS V Current global assessment of functioning equal to 45. PLAN: At this time client has the capacity to make medical decisions. He is politely declining any offers of medications for potential depression. I do think client would benefit in the future from a trial of an antidepressant, but at this time he is declining. Thank you for a very interesting consult.
[2016-10-13 16:42] LABS: APPEARANCE,URINE CLEAR (CLEAR,HAZY); COLOR,URINE STRAW (YELLOW); OCCULT BLOOD,URINE MODERATE (NEGATIVE); PH,URINE 6.5 (5.0-8.0); UROBILINOGEN,URINE NORMAL (NORMAL)
--- NOTE | 2016-10-13 16:42 | NUR ---
Wound Care Pt seen for replacement of his NPWT device as apparently it had become fouled with excrement after patient had a bowel movement in his bed. Wounds are clean at this time, ischial ulcer continues to have 10-15% slough in the wound, hip ulcer is mostly granulation tissue and subcutaneous tissue with bone in the depths of the wound. Both wounds were redressed with black foam and pressure increased to 175 mmHg in hopes of maintaining seal for a longer period of time. Will change dressing with surgeon in 2 days.
[2016-10-13 17:30] VITALS: BP 188/98; PULSE 70; RESP 15; O2SAT 97
--- NOTE | 2016-10-13 18:24 | NUR ---
Activity Pt has had increased blood pressures over shift last one was 188/92, PRN hydralazine given, will recheck BP. Pt has declined to wear HOUSE CALLS NURSE during shift stating "just shut that thing off." Sat's prior to removal were in the 90's while pt was awake. Pt has been semi-compliant with Q2 turns during shift and were able to turn him 4x. Pt shifts back to supine with pressure on left hip pressure ulcer area. New wound vac in place. Vancomycin given, no s/s of redness or phlebitis. BG elevated during shift and insulin given. Late in afternoon pt states "I'm having hallucinations." When questioned more the pt states "it's like I'm a small person in a big room, the ceiling is like 80 feet." aware, monitor pt. Addendum: 10/13/16 at 1833 by BI HARVEY RN Blood consent printed and pt declined to have transfusion at this time. aware.
--- NOTE | 2016-10-13 19:38 | NUR ---
Continued Pain P: Pt stated 8 out of 10 for pain @ 17:30 I: Pt. was administered Methadone (10 mg) and Dilaudin E: Reevaluated pain and Pt. was still at a 8 on pain scale. Tried repositioning pt. off of R. hip with an addition of a pillow underneath to relieve pressure.
[2016-10-13 20:00] VITALS: BP 179/82; PULSE 75; RESP 18; O2SAT 98
[2016-10-13 20:45] VITALS: BP 184/91; PULSE 70; RESP 16; O2SAT 96
[2016-10-13] MEDS: Insulin GLARgine 100 Unit/mL Syringe SUBQ SCH (23:03)
[2016-10-14] VITALS (12 sets, daily range): BP systolic 169–196; BP diastolic 80–98; PULSE 71–86; RESP 12–20; O2SAT 95–98
[2016-10-14] MEDS: Piperacillin-Tazo 3.375 Gm Inj 3.375 GM in Dextrose 5% Minibag Plus 50 ML IV SCH (01:00)
--- NOTE | 2016-10-14 03:34 | NUR ---
Refusal to turn On initial assessment, patient refused to be turned or have me look at his back or buttocks. Patient was agitated . Talked about leaving ama, felt like he was "locked up in a cage". Patient called 911 to report me not letting him leave the hospital.
--- NOTE | 2016-10-14 03:53 | NUR ---
One touch Blood Glucose At approximately 0330, patients glucose level was 68. ULTRASONIC HAND SOLDERER offered orange juice to patient. Patient refused to drink juice or open his mouth. 25 ml of D50 administered. Will recheck blood glucose levels in 15 minutes. Addendum: 10/14/16 at 0359 by ANJUM AMBROSE RN Patient was diaphoretic and lethargic. When offered orange juice by ULTRASONIC HAND SOLDERER and myself, patient swatted the cup away. Addendum: 10/14/16 at 0605 by ANJUM AMBROSE RN Patient blood glucose level : 99 at 15 minutes post D50.
[2016-10-14 07:17] LABS: BASOPHILS % (AUTO) 0.2 % (0-3); EOSINOPHILS % (AUTO) 6.4 % (0-5); MONOCYTES % (AUTO) 10.2 % (4-12); Mean Corpuscular Hemoglobin 24.1 pg (27.0-35.0); Mean Corpuscular Volume 84.2 fL (81-100); NEUTROPHILS % (AUTO) 56.5 % (40-74); Platelet Count 267 bil/L (150-400)
--- NOTE | 2016-10-14 07:25 | NUR ---
REFUSAL OF CARE PATIENT REFUSED MULTIPLE ATTEMPTS AT TURNING. REFUSED HYGIENE CARE AND CONT. PULSE OX STATING HE NEEDED HIS SPACE. ALSO REFUSED TO DRINK OR EAT WHEN HAVING LOW BLOOD SUGAR.
[2016-10-14] MEDS: Insulin LISPRO 300 Unit/3 mL Inj SUBQ SCH ×4 (08:00→22:00)
[2016-10-14] MEDS: Vancomycin Dose per Pharmacist XX SCH (08:30)
[2016-10-14] MEDS: Ondansetron 2 mg/mL 2 mL Inj IVPUSH PRN (09:30)
[2016-10-14] MEDS: HYDROmorphone 0.5 mg/0.5 mL iSecure Syringe IVPUSH PRN ×4 (09:31→22:45)
[2016-10-14] MEDS: 0.9% Sodium Chloride 1,000 ML IV SCH ×3 (10:21→23:06)
[2016-10-14] MEDS: Sucralfate 1,000 mg Tablet PO SCH ×4 (10:45→20:59)
--- NOTE | 2016-10-14 11:01 | PCM.PNSURG ---
Subjective Date of Service: Oct 14, 2016 Visit Information: Reason for Visit Infected Pressure Ulcer Surgery/Surgery Date I&D L BUTTOCK WOUND 10/09/16 Post-Op Day #6/5 Date of Admission: Oct 07, 2016 at 19:27 Hospital Day # Subjective: Wound VAC replaced yesterday. Disposition pending family conference to occur today. Patient requesting transfer to [place]. Gastrointestinal: Good Appetite, Tolerating Oral Feedings, Passing Stool Pain Management: PO, IV Push Postop Activity: Other (bed rest) Objective Vital Sign- Last 8 Hours Date Time Temp Pulse Resp B/P Pulse Ox O2 Delivery O2 Flow Rate FiO2 10/14/16 09:12 36.9 71 20 195/89 95 Room Air 10/14/16 06:15 36.7 73 16 185/85 96 Room Air Intake and Output- Last 8 Hour 10/14/16 Cumulative From/Thru 06:59 10/07/16 16:51 - 10/14/16 06:40 Intake Total 577 ml 94396 ml Output Total 80563 ml Balance 577 ml 32431 ml Intake Oral 82824 ml IV Total 577 ml 31084 ml Output Urine Total 29562 ml Drainage Total 150 ml Estimated Blood Loss 100 ml # Voids 2 # Bowel Movements 3 General: Alert, Cooperative, No Acute Distress, Other (agitated) Lungs: Clear to Auscultation Heart: Regular Rate/Rhythm SURGICAL WOUND : Wound General Appearence: Wound under dressing (wound VAC) Neuro: Normal Speech Result Diagram: 10/14/16 0615 10/14/16 0615 Assessment & Plan Impression Primary diagnoses: 1. Left greater trochanter and left ischial decubitus ulcers. POD #6/5 following debridements with wounds reported to be stable by the wound care nurse , no debridement required at this time. 2. Anemia of chronic disease Other diagnoses: 1. Diabetes mellitus type II insulin-dependent 2. Peripheral artery occlusive disease 3. Morbid obesity, BMI 36.7 4. Dementia 5. Posttraumatic stress disorder 6. Chronic pain syndrome 7. Migraine 8. Hypertension 9. TIA 10. COPD 11. Degenerative joint disease 12. Daily cigarette smoker Problems: Plan Disposition as per the hospitalist team Pain Management: Dilaudid Methadone Resuscitation Status: CPR: Attempt Resuscitation Antwan Burnette PA-C Oct 14, 2016 11:01
[2016-10-14] MEDS ORDERED: Vancomycin Serum Trough XX ONE (12:30)
--- NOTE | 2016-10-14 12:55 | PCM.PNMED ---
Subjective Date of Service Oct 14, 2016 Subjective Patient was emotionally distressed Wanted to go home today Understood the conversation and discussion Patient agreed on transfusion, explained in details about current medical status Plan to have family meeting today with at 11am Patient denied having black or bloody stools Exam Vital Signs Vital Sign - Last Date Time Temp Pulse Resp B/P Pulse Ox O2 Delivery O2 Flow Rate FiO2 10/14/16 09:12 36.9 71 20 195/89 95 Room Air 10/09/16 20:20 3.00 Intake and Output 10/13/16 10/13/16 10/14/16 Cumulative From/Thru 15:00 23:00 07:00 10/07/16 16:51 - 10/14/16 06:40 Intake Total 2661 ml 577 ml 82865 ml Output Total 1100 ml 33774 ml Balance 1561 ml 577 ml 94407 ml Intake Oral 472 ml 22802 ml IV Total 2189 ml 577 ml 48944 ml Output Urine Total 1100 ml 58653 ml Drainage Total 150 ml Estimated Blood Loss 100 ml # Voids 2 # Bowel Movements 3 3 Exam NAD, comfortably laying down on the bed no JVD, MMM, no LAD RRR, nl s1, s2 no mrg CTAB, no w,c S,ND,NT,normoactive BS+ bilateral s/p AKA, stump IVs and Medications Medications Reviewed: Medications were reviewed in detail Lab and Diagnostics Result Diagram: 10/14/1661410/14/1615 Microbiology Name: TONIO SHABAZZ Age/Sex: 55/M Attend Dr: German Soto MD Acct: [id number] Unit: [id number] Status: REG RCR Location: [facility] Re10/01/16 Disch: Specimen: [id number] Collected: 10/01/16 Status: JANELLE Beltre#: [id number] Received: 10/01/16 Source: HIP Sp Desc : LEFT Subm Dr: Keith Cervantes MD Ordered: CS & ANAC & GS Comments: Collected by Nurse/Unit? Y/N Y Comment: L HIP WOUND Procedure Result Verified Site Microbiology JAZZY GS (GRAM STAIN) Final 10/01/16 GRAM STAIN RESULT MANY POLYS MODERATE GRAM POS COCCI MANY GRAM VARIABLE RODS JAZZY CULT AEROBIC Final 10/07/16 MODERATE NORMAL SHAYLA PRESENT ANAEROBIC CULTURE Final 10/07/16 No anaerobes isolated X-Rays, CTs and MRIs PROCEDURE: X-RAY LEFT HIP COMPLETE, MINIMUM TWO VIEWS ([id number]) INDICATIONS: left hip/buttock wound TECHNIQUE: 2 views of the hip were acquired. COMPARISON: None. FINDINGS: Bones: Bones are osteopenic. Suspect fracture in the left femoral neck. There is severe osteopenia.. No suspicious bony lesions. The visualized pelvic ring appears intact. Soft tissues: No suspicious soft tissue calcifications or masses. Subcutaneous gas in the left buttock. IMPRESSION: 1. Suspect left femoral neck fracture. 2. Subcutaneous gas in the left buttock. Dictated by: Juvencio Lopez M.D. on 10/07/2016 at 20:54 Approved by: Juvencio Lopez M.D. on 10/07/2016 at 20:56 Assessment & Plan 55-year-old obese patient with history of smoking, PAD, insulin-dependent diabetes mellitus, diabetic retinopathy presented due to his left hip ulcer. acute, active #Left greater trochanter and left ischial decubitus ulcers, POA, In ER, xray of hip demonstrated left femoral neck fracture and subcutaneous gas in left buttock, initially Leukocytosis 16.4,neutrophils 70.8, Lactic acid 1.1, Procalcitonin 0.17. HD stable, remained afebrile on abx, s/p ulcer debridement 10/09 showed healthy viable tissue on both wounds. Wound VAC was placed into both wounds -pt is clinically stable on abx, received vancomycin and zosyn for 6days, today will switch to oral Augmentin 875/125 given no culture positive, mild to moderate infection, no sepsis, no abscess on OP findings Plan for 14days course -Blood cultures ngtd -Dilaudid available for pain -Wound VAC care per wound care/general surgery #acute anemia, POA, likely from surgical blood loss with underlying chronic anemia, today 6.4 -target>7, will transfuse 2units today -trends h/h 3hours after transfusion per protocol chronic, stable Hypoalbuminemia, chronic, present on admission Will check urinalysis to see if the spelling of protein Also the total protein to albumin ratio is higher so will check SPEP. We will also get nutrition consult Acute on chronic anemia, present on admission Recommended transfusion of 1 unit PRBCs however patient refuses Behavioral issues with noncompliance and history of depression Appreciate palliative care consultation Did discuss with psychiatry today and will consult on patient sometime today. Appreciate psychiatry input Self and the nurse discussed with patient today the importance of him being compliant what what we are requesting such as rotation to avoid decubitus ulcers. Also advise compliance with other measures in order to give standard of medical care. We also did discuss option of becoming comfort care only. We will try to put together a family meeting with patient and staff today or tomorrow Insulin-dependent diabetes mellitus type 2 with complication of diabetic retinopathy, present on admission, ongoing -Holding home medications -Low dose correctional insulin protocol initiated -Would recommend diabetic diet, however pt states he would leave AMA if given diabetic diet -General diet ordered for patient Morbid obesity -BMI of 36.7 Tobacco use disorder, present on admission, ongoing -Nicotine patch ordered for patient -Encouraged cessation, pt not interested. Chronic issues Peripheral artery disease Chronic pain COPD PCP: Dr Cosme CODE STATUS: Full code dispo: complicated, home vs long-term Evelyn, appreciate palliative care service, DELFINA MAGDALENO, family meeting at 11am today Resuscitation Status: CPR: Attempt Resuscitation Time spent 35min Nathan Bell MD Oct 14, 2016 12:55
--- NOTE | 2016-10-14 12:58 | NUR ---
Palliative care note D/A: Discussion of FCTM that was held today at 1100, which Dr. Gastelum attended. Pt insistent on going home. Spouse and CG both communicated clearly that they are unable to take care of him in the manner that is required as he is total care and is also not willing/able to participate to the degree to which he might be capable of doing. Spouse expresses love and care for pt and indicates to him that she feels a dc home is not in his interest but pt continues to insist strongly and order a discharge home. Strong feelings from many medical team members that this dc will not be successful as pt insists on not following treatment that may have a chance at somewhat improve his current medical condition. Review of chart reveals that HH has been ordered but does not include [facility]. Discuss with ross Andino to ask for [facility] to also be ordered. Purpose would be to support spouse and begin to work with pt/spouse to move towards greater understanding of the patients prognosis. Dr. Gastelum has discussed with pt that his sacral decubs are most likely not going to heal. Pt had expressed that this information was the first time he had heard expressed that he was not going to get better. HH [facility] to hopefully begin to work with both pt/sp to an understanding of pt current condition and assist with possible transition to Hospice services. P: Palliative care to follow as needed. REN Rojas
[2016-10-14] MEDS ORDERED: 0.9% Sodium Chloride 250 ML ONE ×2 (13:21→16:16)
--- NOTE | 2016-10-14 13:48 | NUR ---
Use of Therapeutic Language P: Patient was earlier expressing agitation toward nursing staff. I: It is best to use listening and therapeutic language to calm and get cooperative patient. E: He reacted better to this method this shift.
--- NOTE | 2016-10-14 14:40 | PCM.PALLBR ---
Palliative Care Recommendation 55-year-old male with type II diabetes mellitus, severe peripheral vascular disease, status post prior bilateral lower extremity amputations, COPD, etc. admitted now with unstageable, large decubiti ulcers. General surgery is following and managing his wound care. Palliative medicine consulted to assist in determination of goals of care and symptom management. Spoke at length again today in person with both his Kasia and his caregiver Carol (see below for more details). Summary of palliative recommendations: -Symptom management (Pain/other)- pain control improved. Earlier, had adjusted dose of his Dilaudid to 1 mg IV Q2 hr prn and encouraged nurses to use this 15-30 minutes prior to dressing changes or movements that predictably trigger his breakthrough pain. Today, restarted his usual oxycodone , 10 mg Q2 hr prn breakthrough pain (or can be given approximately 1 hour before dressing changes/movement/etc. to premedicate). On 10/12, also increased his basal pain medication from chronic methadone 5 mg QID to methadone 10 mg twice daily (at 0630 and 1630) as well as 5 mg twice daily (at 1130 and 2130). I suggested that he consider changing his methadone to BID or TID dosing for convenience, but he really insists on continuing his QID dosing schedule. Will continue to follow his response to these changes and adjust as needed in the coming days. -DPOA/Advanced Directives/POLST- His Kasia is his POA. He remains committed to FULL CODE and ongoing aggressive medical treatment. He says that he and his may reconsider this if it appears that he is not improving, but for the time being he wants to remain very aggressive. He understands that he needs to try to cooperate with nursing staff in turning, dressing changes, using his medications as directed, etc. in order to optimize his chances of getting better. He says that he has occasionally just gotten emotionally overwhelmed with his situation and pain and this has led to his refusing care. Today he insisted that he be discharged home no later than tomorrow, 10/15. -Family/emotional support- excellent support from his at home, who is unfortunately nearing the limits of her ability to care for him Patient Goals: 1. Patient and his want to be told the truth about his illness, even if it is unpleasant. 2. Patient and his would like to be told prognosis when it can be predicted , to better guide treatment decisions. Additional Medical Diagnoses with primary management by Hospitalist team include : Infected unstageable left hip pressure ulcer, present on admission, ongoing Behavioral issues with noncompliance and history of depression Abdominal pain of uncertain etiology, refuses evaluation at present Insulin-dependent diabetes mellitus type 2 with complication of diabetic retinopathy, present on admission, ongoing Morbid obesity Tobacco use disorder, present on admission, ongoing Peripheral artery disease Chronic pain with narcotic habituation COPD Problems: End of Life Preferences Full code Goals of Care He continues to hope for stabilization and healing Disposition Strongly desires home, and is unrealistically fixed on that- despite hearing from his , home nurse, and medical team that he would be much better off discharging to [facility] for continued aggressive care Resuscitation Status Resuscitation Status: CPR: Attempt Resuscitation POLST Updates/Changes Previous POLST?: No . Pain: Mild Symptom management: Pain Total time 70 minutes; >50% face to face with patient and family, providing counselling regarding plans and recommendations, and in care coordination with his medical teams. Of the above total time, 15 minutes counseling for advanced care planning with the patient and his , discussing his wishes for aggressive care in the setting of his multiple illnesses and noncompliance copies to: Steven Cosme MD Palliative Brief Note Date of Service Oct 14, 2016 . Returned to reevaluate patient and participate in meeting with his , home caregiver, and discharge planning/UR team Prior to visiting, reviewed his updated records in the EMR in detail. Spoke with his bedside nurse. On my arrival, he was already talking with the discharge planning team. His Kasia and nurse Carol are at bedside. Discharge planning is anticipating discharge home tomorrow and has been trying to arrange for additional assistance /support. They are going to contact his outpatient nurse outreach case manager to see what additional resources might be available. Patient was offered and strongly encouraged to transfer to [facility] in [place] for ongoing aggressive wound care, but despite repeated careful explanations of the benefits of this (contrasted with the very serious concerns of progressive deterioration if he returns home) the patient repeatedly and staunchly refuses to go to [facility] and further refuses any kind of SNF placement locally. Kasia and Carol expressed very clearly their severe anxiety and reservations about trying to manage him at home. His bulk, coupled with his muscular weakness, his severe tissue breakdown and necessary wound VAC/dressing care, his chronic urinary and rectal incontinence, etc. have them (and the entire medical team) convinced that care at home will be a failure and that he will deteriorate and require readmission in the very near future. Despite all recommendations and conversation though, patient refuses to consider any course other than discharge home, and his feels incapable of refusing him that. Kasia and Carol did express very strongly that they need to have physical therapy and wound care work with them today and tomorrow to teach them how to care for the patient, how to move him, how to optimize his care at home. UR promised to pass the word long to those teams to come in and work with Kasia and Carol, but also continued to express unequivocally that the patient will discharge tomorrow to home because he has refused all other placement. Today the patient also related that over the last 1-2 months he has had increasing bouts abdominal pain, some so severe that they doubled him over in his wheelchair for all worse. He has not told any caregivers both these because he is afraid that it would may need after being in the hospital for further evaluation and treatment. He says these episodes happen several times a day, unpredictably, not clearly associated with eating or bowel movements, localized to the right midabdomen. No prior history of colonoscopy and has had no evaluation for this (in fact, refusing further evaluation at this time because it would interfere with his getting out of the hospital). Steven Gastelum MD Oct 14, 2016 14:40
--- NOTE | 2016-10-14 15:15 | NUR ---
Home Wound Vac Request Submitted Prior auth has been submitted to [facility] for patient to have a home wound vac approved for placement upon discharge. Notes will be updated when vac is approved.
--- NOTE | 2016-10-14 15:41 | NUR ---
PT NOTE-- Attempted to see patient for PT eval. and caregiver also present. Spoke with Morris Garduon, PT, CWS regarding precautions for transfers to W/C due to pressure ulcers and wound vac. He requested we hold PT eval until tomorrow am to coordinate with dressing change due to likelihood of disrupting negative pressure on wound vac. Patient and family agree with plan and will be present tomorrow am at 10am for PT eval.
--- NOTE | 2016-10-14 15:51 | NUR ---
Social Work- Family Care Conference and Readiness for Discharge Data: EMR reviewed. Pt is on day 7 of hospitalization for infected pressure ulcer per H&P. Pt is not medically stable, anticipate discharge tomorrow. Psych has assessed pt and determined pt is decisional. RASTA, UR RN, Admin, and Palliative Care met with pt, pt's , and pt's caregiver Carol at bedside for a family care conference today 10/14 at 11 am. Pt care options, including [facility] and Home with HH, were discussed. Pt is adamant about going home at this time. Palliative Care discussed extensively the medical consequences of pt's decisions. UR RN discussed coordination of PT, wound care, and SW prior to discharge. PT to assess patient and educate family 3/2 at 10 am with and caregiver present. Wound Care continues to follow pt and pursue authorization for home wound vac. SW continues to pursue home with HH and contacting human services case manager Adrian Gil about devoting SHIRIN caregiving hours to an RN to manage pt's wounds. Palliative Care RASTA requested Case Management SW make referral to [facility] for RN, PT, OT and [facility]ERMAN for follow up regarding emotional support and future hospice referral. RASTA faxed F2F to [facility] at [phone] and updated them that pt will be discharging tomorrow. RASTA contacted Adrian Gil [phone], pt's [facility] Mutual [employer] Accountant, regarding possibility of devoting SHIRIN caregiver hours to RN for wound care. Adrian spoke with SHIRIN RN, who stated that pt's wounds are too extensive to be managed by [facility]IR[facility] RN and suggested pt attend [facility] in [place] once per week. RASTA updated family, caregiver, and pt at bedside regarding inability of SHIRIN RN to care for pt's wounds and the possibility for the Wound Care Center in [place] or [place]. Pt's states that [place] [facility] declines to care for pt and [facility] does not have necessary equipment for pt's transfer to bed. Family declined Wound Care Center referral or follow up, stating they would like to pursue home with HH at this time. RASTA discussed discharge plan of home with HH, with PT to work with pt and family 3/2 at 10 am. SW discussed necessity of to transport pt home at discharge via their personal wheelchair van. All are updated and agreeable to this plan. SW continues to follow. Assessment: Pt who would benefit from Reagan ARRIETA RN PT OT [facility]ERMAN. Plan: PT to assess pt and speak with family 3/2 at 10 am prior to discharge. Pt to discharge home with Reagan ARRIETA RN PT OT [facility]ER[facility], with and caregiver to transport home via POV. Wound Care setting up home wound vac. SW continues to follow. Mere [place] SHELL FISHERMAN
[2016-10-14] MEDS: Amoxicillin-Clav 875-125 mg Tablet PO SCH ×2 (16:12→20:46)
--- NOTE | 2016-10-14 17:17 | NUR ---
Pt. bowel movement P: Pt. has been trying to pass a BM since around 1500, he has had guests (which have since left), and a long med pass (d/t the ritual crushing and grinding of each individual medicine) I: Giving him time to complete his bowel movement E: Still hasn't passed stool, says is still working on it.
--- NOTE | 2016-10-14 19:31 | NUR ---
BM/Wound Vac Pt had an extremely large BM at approx 1715. Pt wanted to be left alone, advised pt that we were not going to let him sit in stool and that we needed to get it cleaned up. CASE MANAGEMENT ASSISTANT at bedside helping clean, when pt layed on his side, this RN noticed that there was stool under the seal for the wound vac. Spoke to Wound therapist, advised to pull wound vac and replace w/ wet to dry dressing and cover w/ ABD. Bed down and locked, call light w/in reach
[2016-10-14] MEDS: Insulin GLARgine 100 Unit/mL Syringe SUBQ SCH (20:41)
[2016-10-15] MEDS: HYDROmorphone 0.5 mg/0.5 mL iSecure Syringe IVPUSH PRN ×3 (01:32→11:30)
--- NOTE | 2016-10-15 02:48 | NUR ---
Blood Administration/Repositioning Second unit of PRBC started at 1930. Consent signed. No a/e noted during transfusion or after. Transfusion complete @ 2300. Multiple attempts made at beginning of shift to reposition patient. Received multiple excuses of "after I eat" or "when I'm done here". Education provided and patient reminded that he signed a behavior contract that includes repositioning L4rrecm. Patient noted to get agitated and fling things at bedside table. Charge nurse made aware of patients behavior/refusals and reenforced the behavior contract. Patient left alone to calm down and eventually patient was agreeable to being repositioned. Addendum: 10/15/16 at 0700 by ALMAZ SUE RN Patient resting during 0630 med pass. Was awake most of shift last night. Patient arouses to verbal & tactile stimuli, but too sleepy to safely take PO medications- 0630 meds withheld.
[2016-10-15] MEDS: 0.9% Sodium Chloride 1,000 ML IV SCH (04:26)
[2016-10-15 04:28] LABS: BASOPHILS % (AUTO) 0.2 % (0-3); EOSINOPHILS % (AUTO) 5.8 % (0-5); MONOCYTES % (AUTO) 10.2 % (4-12); Mean Corpuscular Hemoglobin 25.2 pg (27.0-35.0); Mean Corpuscular Volume 82.8 fL (81-100); NEUTROPHILS % (AUTO) 61.6 % (40-74); Platelet Count 229 bil/L (150-400)
[2016-10-15 04:45] VITALS: BP 175/78; PULSE 70; RESP 18; O2SAT 95
[2016-10-15] MEDS: Sucralfate 1,000 mg Tablet PO SCH ×3 (06:16→11:48)
[2016-10-15] MEDS: Insulin LISPRO 300 Unit/3 mL Inj SUBQ SCH ×2 (08:00→12:53)
--- NOTE | 2016-10-15 09:08 | NUR ---
JET Signed 984AM
[2016-10-15] MEDS: Amoxicillin-Clav 875-125 mg Tablet PO SCH (09:20)
[2016-10-15 10:12] VITALS: BP 187/92; PULSE 76; RESP 18; O2SAT 98
[2016-10-15] MEDS ORDERED: AGM875T PO (10:41)
[2016-10-15] MEDS ORDERED: LISI-571 PO (10:41)
[2016-10-15] MEDS ORDERED: POLY17PO6 PO (10:41)
--- NOTE | 2016-10-15 10:48 | PCM.DIMED ---
Discharge Instructions Date of Service Oct 15, 2016 Dates of Hospitalization Oct 07, 2016 at 19:27 Discharge Diagnosis Discharge Diagnosis Left greater trochanter and left ischial decubitus ulcers s/p debridement on Acute blood loss with anemia, likely from surgical blood loss with possible underlying chronic GI bleeding s/p 2units of pRBC transfusion Hypoalbuminemia Behavioral issues with noncompliance and history of depression Insulin-dependent diabetes mellitus type 2 with complication s/p AKA Morbid obesity Tobacco use disorder Peripheral artery disease Chronic pain COPD Medication Instructions Please continue to take Augmentin for 6more days in total of 14days Please use Miralax if you develop constipation Please take 10mtablet of lisinopril 5mg, twice a day for better blood pressure control Diet Low fat, Low Sodium, Heart Healthy, Diabetic Activity No restrictions Patient Instructions You were hospitalized because of infected pressure sores, required debridement by surgery, treated with antibiotics. Given your baseline poor function, higher needs of care with Wound VAC you were recommended to discharge to long-term care facility, but you declined. Please note that there is extremely high risk of inadequate healing, you may have persistent wound, likely to be infected. Please note that home health service arranged, will help your wound management, please coordinate with them at home. Please monitor your closely, tightly controlled blood sugar will prompt your healing process. Please follow recommendation from wound care managing wound VAC. Please note that your blood pressure was inadequately controlled during hospitalization, which required further adjustment from your primary doctor. Follow-up plan Please follow up with her primary doctor in 2 weeks Follow-up Provider: Steven Cosme MD Follow-up with PCP in: 2 weeks Nathan Bell MD Oct 15, 2016 10:48
[2016-10-15 11:22] LABS: Mean Corpuscular Hemoglobin 25.6 pg (27.0-35.0); Mean Corpuscular Volume 82.8 fL (81-100); Platelet Count 299 bil/L (150-400)
--- NOTE | 2016-10-15 11:51 | NUR ---
[facility] Home Vac Approved [facility] has approved a home wound vac to be placed when patient is ready to discharge home. Morrisronald Garduno from Wound Care can be contacted on Vocera when he's ready for placement.
[2016-10-15 12:13] LABS: BASOPHILS % (AUTO) 0 % (0-3); EOSINOPHILS % (AUTO) 6 % (0-5); MONOCYTES % (AUTO) 10 % (4-12); NEUTROPHILS % (AUTO) 65 % (40-74)
--- NOTE | 2016-10-15 12:35 | PCM.PNSURG ---
Subjective Date of Service: Oct 15, 2016 Visit Information: Reason for Visit Infected Pressure Ulcer Surgery/Surgery Date I&D L BUTTOCK WOUND 10/09/16 Post-Op Day # Date of Admission: Oct 07, 2016 at 19:27 Hospital Day # Subjective: The patient's ulcer left hip ulcer was visualized in conjunction with wound care and a fresh wound vac was placed in anticipation of DC. The patient reports continued pain with both active and passive motion, and continues to be incontinent of feces with spillage into the region of his ischial ulcer. The patient states that otherwise he is feeling OK, and is eagerly anticipating DC home with home health, despite a strong recommendation to transition to a fpc care facility. Objective Vital Sign- Last 8 Hours Date Time Temp Pulse Resp B/P Pulse Ox O2 Delivery O2 Flow Rate FiO2 10/15/16 10:12 36.9 76 18 187/92 98 Room Air 10/15/16 04:45 36.8 70 18 175/78 95 Room Air Intake and Output- Last 8 Hour 10/15/16 Cumulative From/Thru 07:00 10/07/16 16:51 - 10/15/16 05:23 Intake Total 2641 ml 45241 ml Output Total 2100 ml 88636 ml Balance 541 ml 45790 ml Intake Oral 1210 ml 68384 ml IV Total 1131 ml 63149 ml Packed Cells 300 ml 600 ml Output Urine Total 2100 ml 52901 ml Drainage Total 275 ml Estimated Blood Loss 100 ml # Voids 2 # Bowel Movements 4 General: Alert, Oriented X3, Cooperative, Moderate Distress (secondary to decubitus ulcers) Lungs: Clear to Auscultation, Normal Air Movement Heart: Exam Unremarkable, Regular Rate/Rhythm, Normal S1, Normal S2 Abdomen: Benign, Soft, Non-tender SURGICAL WOUND : Wound Location/Description Two decubitus pressure ulcers one on the left hip approximately 95x35s3 cm slightly decreased in size since prior exam, the other wound is on the left ischial tuberosity and was dressed at the time of examination. Extremities: Other (BL above knee amputations) Neuro: Grossly Neurologically Intact Catheters: Urethral 2 Way Laird Result Diagram: 10/15/16 1115 10/15/16 0415 Assessment & Plan Impression Two large non-healing pressure ulcers on the patient's left hip and overlying the ischial tuberosity. Wound vac has been applied to the larger of the two wounds and is scheduled to be managed by home health. The other smaller wound is not amenable to wound vac as it will frequently be soiled by incontinence of stool, and thus presents a high likelihood of infection post DC. Despite this the patient has elected to DC home with home health despite a strong recommendation from all care providers that he transition to a fpc care facility for further management. Primary diagnoses: 1. Left greater trochanter and left ischial decubitus ulcers. POD #7/6 following debridements with wounds reported to be stable by the wound care nurse , no debridement required at this time. 2. Anemia of chronic disease Other diagnoses: 1. Diabetes mellitus type II insulin-dependent 2. Peripheral artery occlusive disease 3. Morbid obesity, BMI 36.7 4. Dementia 5. Posttraumatic stress disorder 6. Chronic pain syndrome 7. Migraine 8. Hypertension 9. TIA 10. COPD 11. Degenerative joint disease 12. Daily cigarette smoker Problems: Plan Home with home health. Pain Management: Dilaudid Methadone Problems: Plan -Home health will manage wound vac changing q72 hrs -Wet to dry packing of ischial ulcer to be changed daily by with the assistance of home health. Resuscitation Status: CPR: Attempt Resuscitation Attending Statement: I agree with Dr. Blake's assessment and plan. Steven Blake DO Oct 15, 2016 12:34 King Fontanez MD Oct 19, 2016 17:24
--- NOTE | 2016-10-15 13:43 | PCM.PALLBR ---
Palliative Care Recommendation 55-year-old male with type II diabetes mellitus, severe peripheral vascular disease, status post prior bilateral lower extremity amputations, COPD, etc. admitted now with unstageable, large decubiti ulcers. General surgery is following and managing his wound care. Palliative medicine consulted to assist in determination of goals of care and symptom management. 10/14: Dr. Gastelum spoke in person with both his Kasia and his caregiver Carol at great length. (see below for more details). 10/15: Dr. Geller counseled pt and family on home pain meds, methadone and oxycodone. Pt reports a mellowing out of his pain with the increased methadone dosing, but still reports breakthrough pain at times. Summary of palliative recommendations: -Symptom management (Pain/other)- pain control improved. 1. Dilaudid to 1 mg IV Q2 hr prn 15-30 minutes prior to dressing changes or movements that predictably trigger his breakthrough pain. 2. On 10/14: use his home medication of his oxycodone, 10 mg Q2 hr prn breakthrough pain (or can be given approximately 1 hour before dressing changes/ movement/etc. to premedicate). 3. This is day 3 of methadone 10 mg twice daily (at 0630 and 1630) as well as 5 mg twice daily (at 1130 and 2130). Dr. Gastelum suggested that he consider changing his methadone to BID or TID dosing for convenience, but he really insists on continuing his QID dosing schedule. -DPOA/Advanced Directives/POLST- 1. His Kasia is his POA. 2. He remains committed to FULL CODE and ongoing aggressive medical treatment. He says that he and his may reconsider this if it appears that he is not improving, but for the time being he wants to remain very aggressive. He understands that he needs to try to cooperate with nursing staff in turning , dressing changes, using his medications as directed, etc. in order to optimize his chances of getting better. He says that he has occasionally just gotten emotionally overwhelmed with his situation and pain and this has led to his refusing care. Family/emotional support- excellent support from his at home, who is unfortunately nearing the limits of her ability to care for him Patient Goals: 1. Patient and his want to be told the truth about his illness, even if it is unpleasant. 2. Patient and his would like to be told prognosis when it can be predicted , to better guide treatment decisions. Additional Medical Diagnoses with primary management by Hospitalist team include : Infected unstageable left hip pressure ulcer, present on admission, ongoing Behavioral issues with noncompliance and history of depression Abdominal pain of uncertain etiology, refuses evaluation at present Insulin-dependent diabetes mellitus type 2 with complication of diabetic retinopathy, present on admission, ongoing Morbid obesity Tobacco use disorder, present on admission, ongoing Peripheral artery disease Chronic pain with narcotic habituation COPD Problems: End of Life Preferences Full code Goals of Care He continues to hope for stabilization and healing Disposition Strongly desires home, and is unrealistically fixed on that- despite hearing from his , home nurse, and medical team that he would be much better off discharging to [facility] for continued aggressive care Resuscitation Status Resuscitation Status: CPR: Attempt Resuscitation POLST Updates/Changes Previous POLST?: No . Symptom management: Pain Total time 65 minutes; >50% face to face with patient and/or family, providing counselling regarding plans and recommendations, and in care coordination with his/her medical teams. Palliative Brief Note Date of Service Oct 15, 2016 . Returned to reevaluate patient and participate in meeting with his , home caregiver. Prior to visiting, reviewed his updated records in the EMR in detail. Spoke with his bedside nurse. On my arrival, he is alert and his Kasia and home hired caregiver Carol are at bedside. Discharge planning is anticipating discharge home today and has been trying to arrange for additional assistance/support. Earlier, patient was offered and strongly encouraged to transfer to [facility] in [place] for ongoing aggressive wound care, but despite repeated careful explanations of the benefits of this (contrasted with the very serious concerns of progressive deterioration if he returns home) the patient repeatedly and staunchly refuses to go to [facility] and further refuses any kind of SNF placement locally. Kasia and Carol expressed very clearly their severe anxiety and reservations about trying to manage him at home. His bulk, coupled with his muscular weakness, his severe tissue breakdown and necessary wound VAC/dressing care, his chronic urinary and rectal incontinence, etc. have them (and the entire medical team) convinced that care at home will be a failure and that he will deteriorate and require readmission in the very near future. Despite all recommendations and conversation though, patient refuses to consider any course other than discharge home, and his feels incapable of refusing him that. Kasia and Carol did express very strongly that they need to have physical therapy and wound care work with them today to teach them how to care for the patient, how to move him, how to optimize his care at home. So far, PT and wound care have not been able to coordinate a joint visit today. Wound care saw him earlier today. Will only go home with a wound vac for the left greater trochanter decubital ulcer and he will have wet to dry for the left ischial decubital ulcer (please see wound care notes). Today the patient again told Dr. Geller (as he told Dr. Gastelum on 10/14) that over the last 1-2 months he has had increasing bouts abdominal pain, some so severe that they doubled him over in his wheelchair for all worse. He has not told any caregivers both these because he is afraid that it would may need after being in the hospital for further evaluation and treatment. He says these episodes happen several times a day, unpredictably, not clearly associated with eating or bowel movements, localized to the right midabdomen. No prior history of colonoscopy and has had no evaluation for this (in fact, refusing further evaluation at this time because it would interfere with his getting out of the hospital). He asks for po dilaudid. Dr. Geller mentioned possibility of adjuvant pain medicine depakote that is usually used for seizures. Family interested in this, however at the time they did not volunteer information that patient is already on dilantin for seizures. Dr. Geller reviewed meds and feels oxycodone started by Dr. Gastelum for breakthrough pain is more appropriate choice at this time. She will return in afternoon to cosmetic counselor family on this. Lizy Geller MD Oct 15, 2016 13:43
--- NOTE | 2016-10-15 14:56 | NUR ---
Wound Care DC Note Patient seen at bedside for NPWT dressing application at left hip. Nursing reported NPWT dressing was compromised last evening due to yet another explosive bowel movement so dressing was removed and wounds were packed with gauze and covered with absorptive dressing at that time. Wound (pressure ulcers stage 4) dimensions are unchanged from initial surgery. Left great trochanter 11 cm L x 11 cm W x 5 cm D. Left Ischium 4 cm L x 3.5 cm W x 3 cm D (areas of skin breakdown along edges of this wound). Scant drainage in canister. Wound base of great trochanter wound clean with combination of granulation tissue and subcutaneous tissue and bone. Wound base of ischial ulcer with some slough (< 20%) and granulation tissue. NPWT reapplied to greater trochanter wound only as ischial wound incorporation into NPWT is where the dressing has been failing. black foam was used, pressure set at 175 mmHg and continuous therapy, an excellent seal was attained. Patient to go home with home health, it is recommended that NPWT be changed by HH q 48-72 hours at the left hip/greater trochanter. Left ischial ulcer dressing to be packed daily with gauze and covered with an absorptive dressing, has performed this dressing change in the hospital today. Pt will follow up at the wound center in [facility] with surgeon Flakita Cervantes on 10/29.
[2016-10-15 15:07] VITALS: BP 173/83; PULSE 77
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
--- NOTE | 2016-10-15 16:23 | NUR ---
Discharge Pt d/c'd home at approx 1600. Reviewed d/c' info w/ patient, his , and his textbook associate, answered all questions. PICC line removed by IVT. Pt and family shown transfer to w/c instructions by PT. Pt left w/ all belongings, hard copies of RXs via personal w/c.
--- NOTE | 2016-10-15 16:26 | NUR ---
Social Work: Discharge Patient discharging home with [facility] and Wound Vac. RASTA notified Madonna at [facility] that patient was discharging home today. [facility] will admit patient on 10/16/16. Patient discharging home via POV. Social attempted to call Adrian Gil to request assistance with patient new sling due to patient's bilateral amputation, but was unable to reach via phone at [phone]. RASTA left a message requesting a call back. Yesi Hernadez, SUSIE, ACM
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
--- NOTE | 2016-10-30 09:24 | NUR ---
Palliative care note D/A: Phone call to the family home at [phone]. Have left message of inquiry asking about pt well being and have left return phone number. P: Palliative to attempt outreach, will continue to try to contact. Pippa COURTNEY, CCM
--- NOTE | 2016-11-13 11:34 | NUR ---
Palliative care note D/A: Phone call to pt spouse. She indicates that pt is admitted to [facility] since 11/05/16. Work is being done to obtain auth from pt insurance for placement at [facility]. Insurance has denied once. Medical team has had discussions with pt about colostomy but pt has not been able to consider this option. Spouse has been thinking about the potential positive effects of allowing wounds to heal without stooling present in wounds and is planning on discussing this with pt. She notes that wound with bone involvement has healed a bit and another wound is now open to the bone. Hospice discussed briefly, spouse had not understood that hospice would not replace her caregiving. She is focused on if she brought pt home with hospice, would she be able to change dressings as often as needed. Discussed lack of need for dressing changes but she is not comfortable with this idea. P: Pt at [place] with possible dc plan for [facility]. No further need for palliative care. Pippa COURTNEY, CCM
== END 2016-10-15 16:04 | disposition home health service (06) | DRG 622 ==
LOC: SED 16:48 → UNDOADMIN 19:27 → OSC 19:27
PROVIDERS: ADMIT Surgery; ATTEND Hospitalist
PROC: 0JB70ZZ Excision of Back Subcutaneous Tissue and Fascia, Open Approach (ICD-10-PCS; 2016-10-08)
PROC: 0KBP0ZZ Excision of Left Hip Muscle, Open Approach (ICD-10-PCS; principal; 2016-10-08 11:45)
PROC: 30233N1 Transfusion of Nonautologous Red Blood Cells into Peripheral Vein, Percutaneous Approach (ICD-10-PCS; 2016-10-14)
DX: E11.622 Type 2 diabetes mellitus with other skin ulcer (principal); L89.153 Pressure ulcer of sacral region, stage 3; L89.224 Pressure ulcer of left hip, stage 4; M84.452A Pathological fracture, left femur, initial encounter for fracture; D62 Acute posthemorrhagic anemia; E66.01 Morbid (severe) obesity due to excess calories; F03.90 Unspecified dementia, unspecified severity, without behavioral disturbance, psychotic disturbance, mood disturbance, and anxiety; I10 Essential (primary) hypertension; I73.9 Peripheral vascular disease, unspecified; Z79.4 Long term (current) use of insulin; G89.4 Chronic pain syndrome; J44.9 Chronic obstructive pulmonary disease, unspecified; F17.210 Nicotine dependence, cigarettes, uncomplicated; Z86.73 Personal history of transient ischemic attack (TIA), and cerebral infarction without residual deficits; E11.319 Type 2 diabetes mellitus with unspecified diabetic retinopathy without macular edema; Z68.36 Body mass index [BMI] 36.0-36.9, adult; Z51.5 Encounter for palliative care; Z89.612 Acquired absence of left leg above knee; Z89.611 Acquired absence of right leg above knee